=== PATIENT | female | born 1950 | race Caucasian/White ===

== ENCOUNTER 2017-08-14 07:55 | Emergency (ER) | payer MEDICARE ==
[~2017-08-14] VITALS: Ht 154.9 cm; Wt 76.0 kg
[2017-08-14 08:06] VITALS: PULSE 90; RESP 20; TEMP 98
[2017-08-14] MEDS ORDERED: LEVO88TA30 PO (08:28)
[2017-08-14] MEDS ORDERED: CITA40TA4 PO (08:28)
[2017-08-14] MEDS ORDERED: oxyCODONE/ACETAMINOPHEN 5 MG/325 MG TAB PO ONE (08:30)
--- NOTE | 2017-08-14 08:40 | PD ---
HPI Chief Complaint: Pain: Acute or Chronic Time Seen by Provider: 08:13 Travel History International Travel<30 days: No Contact w/Intl Traveler<30days: No Traveled to known affect area: No History of Present Illness HPI This 67-year-old female is complaining of pain at the base of her neck. She says the pain started on Vasyl and seems to be getting worse each day. She says she has not slept well since the pain started. She has taken ibuprofen without much response. The pain radiates to her right shoulder. It does not go down her arm. It is aggravated by movement of the neck. He tried to move her neck around to get some relief without wheeze upon. She has tried heat which did not help. She has no history of arthritis. She had thyroid cancer 20 years ago. She is on levothyroxine now. He does not smoke or drink alcohol. She says the pain is severe. She has not had fever or chills PFSH Past Medical History Glaucoma: Yes Thyroid Disease: Yes Social History Alcohol Use: No Tobacco Use: No Allergies-Medications (Allergen,Severity, Reaction): Coded Allergies: No Known Allergies (Unverified , 08/14/17) Reported Meds & Prescriptions Reported Meds & Active Scripts Active Reported Citalopram (Citalopram Hydrobromide) 40 Mg Tab 40 Mg PO DAILY Levoxyl (Levothyroxine Sodium) 88 Mcg Tab 88 Mcg PO DAILY Review of Systems General / Constitutional: No: Fever, Chills Eyes: No: Diploplia HENT: No: Headaches Cardiovascular: No: Chest Pain or Discomfort Respiratory: No: Cough, Shortness of Breath Musculoskeletal: No: Myalgias Skin: No Rash Neurologic: No: Weakness, Dizziness Endocrine: No: Heat Intolerance Hematologic/Lymphatic: No: Easy Bruising Physical Exam Narrative GENERAL: Well-developed female SKIN: Focused skin assessment warm/dry. HEAD: Atraumatic. Normocephalic. EYES: Pupils equal and round. No scleral icterus. No injection or drainage. ENT: No nasal bleeding or discharge. Mucous membranes pink and moist. NECK: Trachea midline. No JVD. There is really no midline tenderness of the neck. There is tenderness in the right lower paraspinal muscles GASTROINTESTINAL: Abdomen soft, non-tender, nondistended. Hepatic and splenic margins not palpable. MUSCULOSKELETAL: No obvious deformities. No clubbing. No cyanosis. No edema. NEUROLOGICAL: Awake and alert. No obvious cranial nerve deficits. Motor grossly within normal limits. Normal speech. There is no drift of the arms. Fisher Crab are equal. There is no sensory deficit PSYCHIATRIC: Appropriate mood and affect; insight and judgment normal. Data Data Last Documented VS Vital Signs Date Time Temp Pulse Resp B/P (MAP) Pulse Ox O2 Delivery O2 Flow Rate FiO2 08/14/17 08:06 98.0 90 20 Orders Orders Oxycodone-Acetamin 5-325 Mg (Percocet (08/14/17 08:30) Ct Cerv Spine W/O Contrast (08/14/17 08:26) [facility] Medical Decision Making Medical Screen Exam Complete: Yes Emergency Medical Condition: Yes Medical Record Reviewed: Yes Differential Diagnosis Differential includes radiculopathy, musculoskeletal pain, spinal space occupying lesion Narrative Course CT of the cervical spine was obtained. There is no fracture or subluxation. There are multilevel disc protrusions without canal stenosis. There are prominent degenerative changes greatest at C5-C6. Diagnosis Primary Impression: Cervical radiculopathy Scripts Cyclobenzaprine (Flexeril) 10 Mg Tab 10 MG PO TID for Muscle Spasm, #20 TAB 0 Refills Prov: Renny Bales MD 08/14/17 Oxycodone-Acetaminophen (Percocet) 7.5-325 mg Tab 1 TAB PO Q4H Y for PAIN, #20 TAB 0 Refills Prov: Renny Bales MD 08/14/17 Disposition: 01 DISCHARGE HOME Condition: Stable Renny Bales MD Aug 14, 2017 08:40
--- NOTE | 2017-08-14 09:17 | RADRPT ---
EXAM DATE/TIME: 08/14/2017 08:38 [place] COMPARISON: No previous studies available for comparison. INDICATIONS : Right sided neck pain. no known injury. RADIATION DOSE: 24.45 CTDIvol (mGy) MEDICAL HISTORY : Carcinoma, thyroid. SURGICAL HISTORY : Cholecystectomy. section. ENCOUNTER: Initial ACUITY: 3 days PAIN SCALE: 10/10 LOCATION: Right neck TECHNIQUE: Volumetric scanning of the cervical spine was performed. Multiplanar reconstructions in the sagittal, coronal and oblique axial planes were performed. Using automated exposure control and adjustment o f the mA and/or kV according to patient size, radiation dose was kept as low as reasonably achievable to obtain optimal diagnostic quality images. DICOM format image data is available electronically f or review and comparison. FINDINGS: VERTEBRAE: Normal vertebral body height. Prominent degenerative changes greatest at C5-6. ALIGNMENT: No evidence of subluxation. C2-C3: The bony spinal canal is normal in size. No evidence of disc bulge or herniation. The neural forami na are bilaterally patent. C3-C4: Small central protrusion abuts the ventral thecal sac without canal stenosis. The neural foramina ar e bilaterally patent. C4-C5: Small left para central protrusion abuts the ventral thecal sac without canal stenosis. The neural f oramina are bilaterally patent. C5-C6: Mild broad-based protrusion abuts the ventral thecal sac without canal stenosis. Mild neural foramina l narrowing bilaterally. C6-C7: Mild broad-based protrusion abuts the ventral thecal sac without canal stenosis. The neural foramina are bilaterally patent. C7-T1: The bony spinal canal is normal in size. No evidence of disc bulge or herniation. The neural forami na are bilaterally patent. CONCLUSION: 1. No fracture or subluxation. 2. Multilevel protrusions without canal stenosis. Danial Browne MD on August 14, 2017 at 9:11 Board Certified Radiologist. This report was verified electronically.
[2017-08-14] MEDS ORDERED: CYCL10TA PO (09:29)
[2017-08-14] MEDS ORDERED: PERC7.5T13 PO (09:29)
[2017-08-14 09:39] VITALS: RESP 16
== END 2017-08-14 09:45 | disposition home or self-care (01) ==
LOC: PHED 07:55
DX: M54.12 Radiculopathy, cervical region (principal); Z79.899 Other long term (current) drug therapy
CPT/HCPCS: 72125

== ENCOUNTER 2017-11-03 11:32 | Inpatient (IN) | payer OTHER, MEDICARE ==
[~2017-11-03] VITALS: Ht 154.9 cm; Wt 73.5 kg
[2017-11-03] VITALS (12 sets, daily range): BP systolic 135–193; BP diastolic 61–95; PULSE 55–87; RESP 16–20; TEMP 98–99.3; O2SAT 97–99
[~2017-11-03 11:32] MED LIST: CITA40TA4 PO; CYCL10TA PO; LEVO88TA30 PO; PERC7.5T13 PO
[2017-11-03] MEDS ORDERED: PANTOPRAZOLE SODIUM 40 MG VIAL IV PUSH ONE (13:15)
--- NOTE | 2017-11-03 13:35 | PD ---
HPI Chief Complaint: Abnormal Results Time Seen by Provider: 12:59 Travel History International Travel<30 days: No Contact w/Intl Traveler<30days: No Traveled to known affect area: No History of Present Illness HPI This is a 67-year-old female who presents to the emergency department sent in by her primary care physician for low hemoglobin. Patient reports that she had routine blood work done at her primary care doctor demonstrating a hemoglobin of 5.9. She does acknowledge that for the past several months she's felt generally weak, constant, mild, associated with some difficulty exerting herself. She says for 10 years she's been having bright red blood in her stools but it's never been very much so she's never had it checked out. She has no family history of colon cancer. PFSH Past Medical History Anemia: Yes Anxiety: Yes Depression: Yes Cancer: Yes (THYROID) Glaucoma: Yes Immunizations Current: Yes Radiation Therapy: Yes (THYROID) Thyroid Disease: Yes Tetanus Vaccination: > 5 Years Influenza Vaccination: No ?: Not Menopausal: Yes Past Surgical History Section: Yes (X 3) Cholecystectomy: Yes Endocrine Surgery: Yes (CANCEROUS THYROID NODULE REMOVED) Other Surgery: Yes (TUMMY TUCK) Social History Alcohol Use: No Tobacco Use: No (quit 20+ yrs ago cigs 1 pack every 3 days) Substance Use: No (history THC) Allergies-Medications (Allergen,Severity, Reaction): Coded Allergies: No Known Allergies (Unverified , 11/03/17) Reported Meds & Prescriptions Reported Meds & Active Scripts Active Reported Citalopram (Citalopram Hydrobromide) 40 Mg Tab 40 Mg PO DAILY Levoxyl (Levothyroxine Sodium) 88 Mcg Tab 88 Mcg PO DAILY Review of Systems Except as stated in HPI: all other systems reviewed are Neg Physical Exam Narrative GENERAL:Well appearing, no acute distress SKIN: Focused skin assessment warm and dry. HEAD: Atraumatic. Normocephalic. EYES: Pale conjunctivae. ENT: Moist mucous membranes NECK: Trachea midline. CARDIOVASCULAR: Regular rate and rhythm. No murmur appreciated. RESPIRATORY: Clear to auscultation. Breath sounds equal bilaterally. GASTROINTESTINAL: Abdomen soft, non-tender, nondistended. MUSCULOSKELETAL: No obvious deformities. NEUROLOGICAL: Awake and alert. No obvious cranial nerve deficits. Moving all extremities. PSYCHIATRIC: Appropriate mood and affect; insight and judgment normal. Data Data Last Documented VS Vital Signs Date Time Temp Pulse Resp B/P (MAP) Pulse Ox O2 Delivery O2 Flow Rate FiO2 11/03/17 14:00 87 16 137/64 (88) 98 Room Air 11/03/17 12:12 98.7 Orders Orders Complete Blood Count With Diff (11/03/17 12:59) Comprehensive Metabolic Panel (11/03/17 12:59) Prothrombin Time / Inr (Pt) (11/03/17 12:59) Act Partial Throm Time (Ptt) (11/03/17 12:59) Type And Screen (11/03/17 12:59) Pantoprazole Inj (Protonix Inj) (11/03/17 13:15) Iron/Tibc Profile (11/03/17 14:26) Ferritin (11/03/17 14:26) Red Blood Cells (Rbc) (11/03/17 14:42) Blood Product Administration (11/03/17 14:42) Sodium Chlor 0.9% 250 Ml Inj (Ns 250 Ml (11/03/17 14:45) Admit Order (Ed Use Only) (11/03/17 14:48) Admit To Inpatient (11/03/17 ) Vital Signs (Adult) WILLIE.Q4H (11/03/17 14:48) Activity Oob With Assistance (11/03/17 14:48) Inpatient Certification (11/03/17 ) Consult Gastroenterology (11/03/17 ) Labs Laboratory Tests Test 11/03/17 13:35 11/03/17 14:40 White Blood Count 5.7 TH/MM3 Red Blood Count 3.80 MIL/MM3 Hemoglobin 6.4 GM/DL Hematocrit 23.0 % Mean Corpuscular Volume 60.4 FL Mean Corpuscular Hemoglobin 16.8 PG Mean Corpuscular Hemoglobin Concent 27.9 % Red Cell Distribution Width 21.8 % Platelet Count 305 TH/MM3 Mean Platelet Volume 7.9 FL Neutrophils (%) (Auto) 62.4 % Lymphocytes (%) (Auto) 22.7 % Monocytes (%) (Auto) 9.7 % Eosinophils (%) (Auto) 1.7 % Basophils (%) (Auto) 3.5 % Neutrophils # (Auto) 3.5 TH/MM3 Lymphocytes # (Auto) 1.3 TH/MM3 Monocytes # (Auto) 0.6 TH/MM3 Eosinophils # (Auto) 0.1 TH/MM3 Basophils # (Auto) 0.2 TH/MM3 CBC Comment AUTO DIFF Differential Comment AUTO DIFF CONFIRMED Ovalocytes 2+ Keratocytes OCC Blood Urea Nitrogen 7 MG/DL Creatinine 0.57 MG/DL Random Glucose 79 MG/DL Total Protein 7.1 GM/DL Albumin 3.6 GM/DL Calcium Level 8.3 MG/DL Alkaline Phosphatase 126 U/L Aspartate Amino Transf (AST/SGOT) 26 U/L Alanine Aminotransferase (ALT/SGPT) 11 U/L Total Bilirubin 0.5 MG/DL Sodium Level 140 MEQ/L Potassium Level 4.2 MEQ/L Chloride Level 109 MEQ/L Carbon Dioxide Level 24.2 MEQ/L Anion Gap 7 MEQ/L Estimat Glomerular Filtration Rate 106 ML/MIN MDM Medical Decision Making Medical Screen Exam Complete: Yes Emergency Medical Condition: Yes Interpretation(s) Afebrile, no tachycardia, hypertensive Microcytic anemia hemoglobin is 6.4 Electrolytes are reassuring Differential Diagnosis Lower GI bleed, upper GI bleed, anemia of chronic disease, hematologic malignancy Narrative Course This is a 67-year-old female who presents to the emergency department with low hemoglobin found by her primary care physician. She says she's been having bright red blood per rectum for years. She has external hemorrhoids on exam but no stool in the blood to evaluate by Hemoccult. She was placed on a monitor and an IV was established. Hemoglobin here is 6.4. Patient will be admitted for blood transfusion and GI consultation. Physician Communication Physician Communication Discussed with Dr. Jon Diagnosis Primary Impression: Symptomatic anemia Admitting Information Admitting Physician Requests: Admit Latoya Rubin MD Nov 03, 2017 13:35
[2017-11-03 13:53] LABS: AUTOMATED NEUTROPHIL # 3.5 TH/MM3 (1.8-7.7); BASOPHIL # 0.2 TH/MM3 (0-0.2); BASOPHIL % 3.5 % (0.0-2.0); EOSINOPHIL # 0.1 TH/MM3 (0-0.4); EOSINOPHIL % 1.7 % (0.0-4.0); LYMPH % 22.7 % (9.0-44.0); LYMPHOCYTE # 1.3 TH/MM3 (1.0-4.8); MEAN CELL VOLUME 60.4 FL (80.0-100.0); MEAN CORPUSCULAR HEMOGLOBIN 16.8 PG (27.0-34.0); MEAN PLATELET VOLUME 7.9 FL (7.0-11.0); MONO % 9.7 % (0.0-8.0); MONOCYTE # 0.6 TH/MM3 (0-0.9); NEUT % 62.4 % (16.0-70.0); PLATELET COUNT 305 TH/MM3 (150-450); RED CELL DISTRIBUTION WIDTH 21.8 % (11.6-17.2); WHITE BLOOD COUNT 5.7 TH/MM3 (4.0-11.0)
[2017-11-03 14:03] LABS: MEAN CORPUSCULAR HGB CONC 27.9 % (32.0-36.0)
[2017-11-03 14:05] LABS: HEMOGLOBIN 6.4 GM/DL (11.6-15.3)
[2017-11-03 14:06] LABS: CHLORIDE 109 MEQ/L (98-107); SODIUM (NA) 140 MEQ/L (136-145)
[2017-11-03 14:09] LABS: ALBUMIN 3.6 GM/DL (3.4-5.0); BICARBONATE 24.2 MEQ/L (21.0-32.0); CALCIUM 8.3 MG/DL (8.5-10.1); GLUCOSE,RANDOM 79 MG/DL (74-106)
[2017-11-03 14:10] LABS: BLOOD UREA NITROGEN 7 MG/DL (7-18)
[2017-11-03 14:12] LABS: ALT (GPT) 11 U/L (10-53); AST (GOT) 26 U/L (15-37)
[2017-11-03 14:13] LABS: CREATININE 0.57 MG/DL (0.50-1.00); GLOMERULAR FILTRATION RATE 106 ML/MIN (>89)
[2017-11-03 14:14] LABS: TOTAL BILIRUBIN ADULT 0.5 MG/DL (0.2-1.0); TOTAL PROTEIN 7.1 GM/DL (6.4-8.2)
[2017-11-03 14:15] LABS: ALKALINE PHOSPHATASE 126 U/L (45-117)
[2017-11-03 14:38] LABS: KERATOCYTES OCC (NORMAL); OVALOCYTES 2+ (NORMAL)
[2017-11-03] MEDS ORDERED: SODIUM CHLOR 0.9% 250 ML INJ 250 ML IV ONE (14:45)
[2017-11-03 15:15] LABS: PROTHROMBIN TIME - PATIENT 10.1 SEC (9.8-11.6)
--- NOTE | 2017-11-03 15:58 | HHI.HP ---
[facility]ician No Primary Care Physician Admission Diagnosis symptomatic anemia Diagnoses: Chief Complaint: Low blood count Travel History International Travel<30 Days: No Contact w/Intl Traveler <30 Da: No Traveled to Known Affected Are: No History of Present Illness 67-year-old white female being admitted for suspected GI bleed with anemia. Patient was in her usual state of health until she got a phone call from her primary care physician's office directing her to come to the ED due to a low blood count around 5.8. Patient states that she does note blood on wiping her stool but says she has a known history of hemorrhoids. Denies any bright red blood per rectum otherwise. Denies any dark tarry stools. Denies taking any NSAIDs. Says that for about a year or so she did not have insurance and when she hits 67 she finally got insurance and thus had her routine blood work performed. Has a known history of hypothyroidism. In the emergency room her hemoglobin was noted to be 6.4 and microcytic anemia. Review of Systems Except as stated in HPI: all other systems reviewed are Neg Past Family Social History Past Medical History Hypothyroidism Past Surgical History No abdominal surgeries Allergies: Coded Allergies: No Known Allergies (Unverified , 11/03/17) Family History Family history of colorectal cancer with her sibling when she was diagnosed in her 60s Social History Used to smoke up until 20 years ago, denies drinking alcohol, does admit to smoking pot Physical Exam Vital Signs Vital Signs Date Time Temp Pulse Resp B/P (MAP) Pulse Ox O2 Delivery O2 Flow Rate FiO2 11/03/17 15:05 69 16 98 Room Air 11/03/17 15:04 70 16 138/76 (96) 98 Room Air 11/03/17 14:00 87 16 137/64 (88) 98 Room Air 11/03/17 13:23 70 16 99 Room Air 11/03/17 13:00 69 16 149/79 (102) 98 Room Air 11/03/17 12:12 98.7 71 18 146/85 (105) 99 Physical Exam VS: afebrile GENERAL: Middle-aged white female, lying in bed, no acute distress SKIN: Pale but otherwise warm and dry EYES: No scleral icterus. No injection or drainage. ENT: No nasal bleeding or discharge. Mucous membranes pink and moist. CARDIOVASCULAR: Regular rate and irrregular rhythm. no murmurs RESPIRATORY: No accessory muscle use. Clear to auscultation. Breath sounds equal bilaterally. GASTROINTESTINAL: Abdomen soft, non-tender, nondistended. Extremities: No clubbing, cyanosis, or edema. No obvious deformities. MUSCULOSKELETAL: grossly intact ROM with 5/5 strength in upper and lower extremities proximally; adequate muscle bulk and tone for age and habitus NEUROLOGICAL: Awake and alert. No obvious cranial nerve deficits. No facial droop nor slurred speech noted. PSYCHIATRIC: Appropriate mood and affect; insight and judgment normal. Laboratory Laboratory Tests Test 11/03/17 13:35 11/03/17 14:40 White Blood Count 5.7 Red Blood Count 3.80 Hemoglobin 6.4 Hematocrit 23.0 Mean Corpuscular Volume 60.4 Mean Corpuscular Hemoglobin 16.8 Mean Corpuscular Hemoglobin Concent 27.9 Red Cell Distribution Width 21.8 Platelet Count 305 Mean Platelet Volume 7.9 Neutrophils (%) (Auto) 62.4 Lymphocytes (%) (Auto) 22.7 Monocytes (%) (Auto) 9.7 Eosinophils (%) (Auto) 1.7 Basophils (%) (Auto) 3.5 Neutrophils # (Auto) 3.5 Lymphocytes # (Auto) 1.3 Monocytes # (Auto) 0.6 Eosinophils # (Auto) 0.1 Basophils # (Auto) 0.2 CBC Comment AUTO DIFF Differential Comment AUTO DIFF CONFIRMED Ovalocytes 2+ Keratocytes OCC Blood Urea Nitrogen 7 Creatinine 0.57 Random Glucose 79 Total Protein 7.1 Albumin 3.6 Calcium Level 8.3 Alkaline Phosphatase 126 Aspartate Amino Transf (AST/SGOT) 26 Alanine Aminotransferase (ALT/SGPT) 11 Total Bilirubin 0.5 Sodium Level 140 Potassium Level 4.2 Chloride Level 109 Carbon Dioxide Level 24.2 Anion Gap 7 Estimat Glomerular Filtration Rate 106 Prothrombin Time 10.1 Prothromb Time International Ratio 1.0 Activated Partial Thromboplast Time 22.5 Result Diagram: 11/03/17 1335 11/03/17 1335 Caprini VTE Risk Assessment Caprini VTE Risk Assessment: Mod/High Risk (score >= 2) Caprini Risk Assessment Model Point Value = 1 Point Value = 2 Point Value = 3 Point Value = 5 Age 41-60 Minor surgery BMI > 25 kg/m2 Swollen legs Varicose veins or History of unexplained or recurrent spontaneous Oral contraceptives or hormone replacement Sepsis (< 1 month) Serious lung disease, including pneumonia (< 1 month) Abnormal pulmonary function Acute myocardial infarction Congestive heart failure (< 1 month) History of inflammatory bowel disease Medical patient at bed rest Age 61-74 Arthroscopic surgery Major open surgery (> 45 min) Laparoscopic surgery (> 45 min) Malignancy Confined to bed (> 72 hours) Immobilizing plaster cast Central venous access Age >= 75 History of VTE Family history of VTE Factor V Leiden Prothrombin [id number] Lupus anticoagulant Anticardiolipin antibodies Elevated serum homocysteine Heparin-induced thrombocytopenia Other congenital or acquired thrombophilia Stroke (< 1 month) Elective arthroplasty Hip, pelvis, or leg fracture Acute spinal cord injury (< 1 month) Prophylaxis Regimen Total Risk Factor Score Risk Level Prophylaxis Regimen 0-1 Low Early ambulation 2 Moderate Order ONE of the following: *Sequential Compression Device (SCD) *Heparin 5000 units SQ BID 3-4 Higher Order ONE of the following medications: *Heparin 5000 units SQ TID *Enoxaparin/Lovenox 40 mg SQ daily (WT < 150 kg, CrCl > 30 mL/min) *Enoxaparin/Lovenox 30 mg SQ daily (WT < 150 kg, CrCl > 10-29 mL/min) *Enoxaparin/Lovenox 30 mg SQ BID (WT < 150 kg, CrCl > 30 mL/min) AND/OR *Sequential Compression Device (SCD) 5 or more Highest Order ONE of the following medications: *Heparin 5000 units SQ TID (Preferred with Epidurals) *Enoxaparin/Lovenox 40 mg SQ daily (WT < 150 kg, CrCl > 30 mL/min) *Enoxaparin/Lovenox 30 mg SQ daily (WT < 150 kg, CrCl > 10-29 mL/min) *Enoxaparin/Lovenox 30 mg SQ BID (WT < 150 kg, CrCl > 30 mL/min) AND *Sequential Compression Device (SCD) Assessment and Plan Assessment and Plan 67-year-old white female being admitted for possible acute on chronic anemia possibly secondary to GI bleed. Asymptomatic apart from noting blood on wiping from known history of hemorrhoids. Has never had a colonoscopy before. irregular HR, checking ekg Anemia - Being transfused 2 units from emergency room, obtaining ferritin and iron levels. - Obtaining Hemoccult test, consulting GI, starting clear liquid diet. Hypothyroidism - continue home dose of Synthroid SCDs Physician Certification 2 Midnight Certification Type: Admission for Inpatient Services Order for Inpatient Services The services are ordered in accordance with Medicare regulations or non- Medicare payer requirements, as applicable. In the case of services not specified as inpatient-only, they are appropriately provided as inpatient services in accordance with the 2-midnight benchmark. Estimated LOS (days): 3 3 days is the estimated time the patient will need to remain in the hospital, assuming treatment plan goals are met and no additional complications. Post-Hospital Plan: Home Kvng Jon MD Nov 03, 2017 15:58
[2017-11-03] MEDS: CITALOPRAM HYDROBROMIDE 40 MG TAB PO SCH (16:15)
[2017-11-03] MEDS: LEVOTHYROXINE SODIUM 88 MCG TAB PO SCH (16:15)
[2017-11-03 16:42] LABS: % SATURATION IRON PROFILE 2.2 % (20-50); IRON (FE) 11 MCG/DL (50-170); TOTAL IRON BINDING CAPACITY 496 MCG/DL (250-450)
[2017-11-03 16:45] LABS: FERRITIN 1 NG/ML (8-252)
--- NOTE | 2017-11-03 20:07 | MB ---
cc: RASHI BOO M.D., MARGARET M.D. MASOODI, HAMMAD DATE OF CONSULTATION: 11/03/2017. REASON FOR CONSULTATION: Anemia and rectal bleeding. PATIENT OF: Dr. Salmeron. HISTORY OF PRESENT ILLNESS: Ms. Martinez is a 67-year-old who presents with a hemoglobin of 6.4. She states off and on for about ten years she has been having some bright red blood per rectum which was attributed to hemorrhoids. She states this was fairly minimal. Lately she has been feeling more tired and weak. She states she does not have insurance and over the last few years she did not see a doctor. Finally she got insurance so she went to see a doctor and some blood work was done. Hemoglobin of 6.4 was found and the patient was sent to the emergency room. The patient is having no abdominal pain. No hematemesis. No hematochezia. No rashes. No icterus. PAST MEDICAL HISTORY: 1. Anemia. 2. Anxiety disorder. 3. Depression. 4. Hypothyroidism. PAST SURGICAL HISTORY: 1. Cholecystectomy. 2. section. 3. No previous GI workup. ALLERGIES: 1. CODEINE. MEDICATIONS: 1. Levoxyl. 2. Citalopram. REVIEW OF SYSTEMS: No nausea or vomiting. No abdominal pain. No active GI bleeding. PHYSICAL EXAMINATION: GENERAL: The physical exam reveals a well-nourished lady in no apparent distress. VITAL SIGNS: Stable. HEAD AND NECK: Anicteric sclerae. CHEST: Bilateral air entry with rales. ABDOMEN: Abdomen is soft and nontender. No hepatosplenomegaly. Bowel sounds are present. WANT AD RECEIVER: Nonfocal. RECTAL: Deferred at this time. LABORATORY STUDIES: Labs reveal hemoglobin 6.4, MCV 60%, creatinine 0.57. INR is 1. IMPRESSION: Iron deficiency anemia. RECOMMENDATIONS: There is no evidence of active GI bleeding. Options discussed with the patient. At this time, she will of course be transfused to A hemoglobin of above 8. Diet as tolerated. If she is stable after blood transfusion, she can be discharged home tomorrow with outpatient GI follow up next week for outpatient EGD and colonoscopy. This has been discussed with the patient and her daughter and they are agreeable to this plan. Thank you for this referral. MD KRIS Coles /3:59 PM /7:49 PM
[2017-11-04] VITALS: BP 135/75; PULSE 67; RESP 20; TEMP 98.3; O2SAT 97
[2017-11-04 08:00] VITALS: BP 154/74; PULSE 82; RESP 18; TEMP 97.7; O2SAT 97
[2017-11-04 08:09] LABS: BASOPHIL % 0.8 % (0.0-2.0); EOSINOPHIL # 0.1 TH/MM3 (0-0.4); EOSINOPHIL % 2.1 % (0.0-4.0); HEMATOCRIT 30.4 % (35.0-46.0); HEMOGLOBIN 8.7 GM/DL (11.6-15.3); LYMPHOCYTE # 0.9 TH/MM3 (1.0-4.8); MEAN CELL VOLUME 67.2 FL (80.0-100.0); MEAN CORPUSCULAR HEMOGLOBIN 19.4 PG (27.0-34.0); MEAN PLATELET VOLUME 8.1 FL (7.0-11.0); MONO % 8.8 % (0.0-8.0); MONOCYTE # 0.5 TH/MM3 (0-0.9); NEUT % 71.3 % (16.0-70.0); PLATELET COUNT 306 TH/MM3 (150-450); RED BLOOD COUNT 4.51 MIL/MM3 (4.00-5.30); RED CELL DISTRIBUTION WIDTH 27.9 % (11.6-17.2); WHITE BLOOD COUNT 5.5 TH/MM3 (4.0-11.0)
[2017-11-04] MEDS: CITALOPRAM HYDROBROMIDE 40 MG TAB PO SCH (08:19)
[2017-11-04 08:28] LABS: MEAN CORPUSCULAR HGB CONC 28.8 % (32.0-36.0)
[2017-11-04 09:13] LABS: KERATOCYTES OCC (NORMAL); OVALOCYTES 1+ (NORMAL); ROULEAUX PRESENT (NORMAL); SPHEROCYTES OCC (NORMAL)
[2017-11-04] MEDS ORDERED: ASCORBIC ACID 500 MG TAB PO SCH (10:00)
--- NOTE | 2017-11-04 10:44 | HHI.DCPOC ---
Discharge Care Plan Diagnosis: (1) Symptomatic anemia Goals to Promote Your Health * To prevent worsening of your condition and complications * To maintain your health at the optimal level Directions to Meet Your Goals Take your medications as prescribed Follow your dietary instruction Follow activity as directed Keep your appointments as scheduled Take your immunizations and boosters as scheduled If your symptoms worsen call your PCP, if no PCP go to Urgent Care Center or Emergency Room Smoking is Dangerous to Your Health. Avoid second hand smoke Call the 24-hour hour crisis hotline for domestic abuse at Ingris Jennings Nov 04, 2017 10:44
--- NOTE | 2017-11-04 10:44 | HHI.PR ---
Subjective Remarks Follow-up symptomatic anemia. Patient seen and examined, lying awake in bed comfortably, in no apparent distress. States she feels much better post blood transfusion. Eating and drinking well. Hemoglobin up to 8.7 today. Daughter at bedside and spoke extensively about disease process, encouraged follow-up GI one week from discharge. Recommendations are to undergo EDG and colonoscopy. Objective Vitals Vital Signs Date Time Temp Pulse Resp B/P (MAP) Pulse Ox O2 Delivery O2 Flow Rate FiO2 11/04/17 08:00 97.7 82 18 154/74 (100) 97 11/04/17 00:00 98.3 67 20 135/75 (95) 97 11/03/17 23:58 98.3 67 20 135/75 97 11/03/17 21:44 99.3 84 18 142/61 (88) 99 11/03/17 21:38 98.4 67 18 141/86 99 11/03/17 21:36 98.4 67 18 141/86 99 11/03/17 18:48 98.0 66 18 148/70 99 11/03/17 18:39 98.6 55 18 142/95 99 11/03/17 16:24 75 16 137/74 (95) 98 11/03/17 16:00 98.4 55 16 193/89 (123) 97 11/03/17 15:05 69 16 98 Room Air 11/03/17 15:04 70 16 138/76 (96) 98 Room Air 11/03/17 14:00 87 16 137/64 (88) 98 Room Air 11/03/17 13:23 70 16 99 Room Air 11/03/17 13:00 69 16 149/79 (102) 98 Room Air 11/03/17 12:12 98.7 71 18 146/85 (105) 99 I/O 11/03/17 11/03/17 11/03/17 11/04/17 11/04/17 11/04/17 06:59 14:59 22:59 06:59 14:59 22:59 Intake Total 800 ml 1100 ml Balance 800 ml 1100 ml Intake Oral 400 ml Packed Cells 400 ml 1100 ml # Voids 2 # Bowel Movements 0 Result Diagram: 11/04/17 0719 11/03/17 2718 Objective Remarks GENERAL: Well-nourished, well-developed patient in NAD. SKIN: Warm and dry. No rash. HEAD: Normocephalic. Atraumatic. EYES: Pupils equal and round. No scleral icterus. No injection or drainage. ENT: No nasal bleeding or discharge. Mucous membranes pink and moist. NECK: Supple. Trachea midline. CARDIOVASCULAR: Regular rate and rhythm. S1, S2 noted. No murmur appreciated. RESPIRATORY: No accessory muscle use. Clear to auscultation. Breath sounds equal bilaterally. GASTROINTESTINAL: Abdomen soft, non-tender, nondistended. Normoactive bowel sounds x4. MUSCULOSKELETAL: No obvious deformities. Extremities without clubbing, cyanosis , or edema. NEUROLOGICAL: Awake and alert. No obvious cranial nerve deficits. Motor grossly within normal limits. 5/5 muscle strength in bilateral upper and lower extremities. Normal speech. PSYCHIATRIC: Appropriate mood and affect; insight and judgment normal. A/P Assessment and Plan 67-year-old white female being admitted for possible acute on chronic anemia possibly secondary to GI bleed. Asymptomatic apart from noting blood on wiping from known history of hemorrhoids. Symptomatic Anemia likely secondary to iron deficiency anemia -Status post two units. PCP in ED. Hemoglobin stable at 8.7. - Ferritin and iron levels low. Placed on iron supplementation with vitamin C. - Tolerating by mouth intake, denies any abdominal pain, nausea or vomiting. - Okay to discharge per GI standpoint today. Hypothyroidism - continue home dose of Synthroid SCDs Discharge Planning Discharge home today. Ingris Jennings Nov 04, 2017 10:44
[2017-11-04] MEDS ORDERED: FERR325T20 PO (10:48)
[2017-11-04] MEDS ORDERED: ASCO500 PO (10:48)
[2017-11-04] MEDS ORDERED: PANT20 PO (10:49)
[2017-11-04] MEDS: LEVOTHYROXINE SODIUM 88 MCG TAB PO SCH (11:08)
--- NOTE | 2017-11-04 14:36 | EKG ---
Date Performed: 11/03/2017 Time Performed: 18:15:35 PTAGE: 67 years EKG: Supraventricular rhythm Slight undetermined frequent ventricular ectopy NO PREVIOUS TRACING DOCTOR: Rahat Miller Interpretating Date/Time 11/04/2017 14:34:29
[2017-11-05] MEDS ORDERED: FERROUS SULFATE 325 MG (65 MG ELEMENTAL IRON) TAB PO SCH (09:00)
== END 2017-11-04 11:51 | disposition home or self-care (01) | DRG 812 ==
LOC: PHED 11:32 → PHEDA 14:49 → PH3B 16:27
PROVIDERS: ADMIT Hospitalist; ATTEND Hospitalist
PROC: 30233N1 Transfusion of Nonautologous Red Blood Cells into Peripheral Vein, Percutaneous Approach (ICD-10-PCS; principal; 2017-11-03)
DX: D50.9 Iron deficiency anemia, unspecified (principal); F32.9 Major depressive disorder, single episode, unspecified; K64.4 Residual hemorrhoidal skin tags; E03.9 Hypothyroidism, unspecified; H40.9 Unspecified glaucoma; F12.90 Cannabis use, unspecified, uncomplicated; F41.9 Anxiety disorder, unspecified; Z80.0 Family history of malignant neoplasm of digestive organs; Z85.850 Personal history of malignant neoplasm of thyroid; Z87.891 Personal history of nicotine dependence
CPT/HCPCS: 36430; 80053; 82272; 82728; 83540; 83550; 85025; 85610; 85730; 86850; 86900; 86901; 86920; 93005; 96374; C9113; J7050; P9016

== ENCOUNTER 2018-09-11 16:09 | Inpatient (IN) ==
--- NOTE | 2018-09-11 16:49 | XR ---
EXAM DATE: 09/11/2018 4:41 PM EST AGE/SEX: 68 years / Female INDICATIONS: Post intubation. Post code. Post CPR. CLINICAL DATA: This is the patient's initial encounter. Patient reports that signs and symptoms have been present for 1 day and indicates a pain score of Nonresponsive. MEDICAL/SURGICAL HISTORY: Non-responsive. . COMPARISON: No prior exams available for comparison. FINDINGS: The ET tube appears to be a low position. The soledad is difficult to actually identify. There is dis tention of the stomach. ET tube could potentially be in the esophagus. The heart size is enlarged. Th ere is increased density at the medial right chest. Some this could be secondary to atelectasis. The re is decreased aeration in the right lung compared to the left lung. CONCLUSION: ET tube in a low position in the mid chest. There is very prominent gaseous distention raising the po ssibly it may be in the mid esophagus. It is in the trachea, it is at the soledad. Cardiomegaly. Electronically signed by: Larry Hansen MD 09/11/2018 4:48 PM EST
[2018-09-11] MEDS ORDERED: Vancomycin Inj 1,000 MG in Sodium Chlor 0.9% Inj 250 ML IV.SIG ONE (17:12)
[2018-09-11] MEDS ORDERED: Piperacil/Tazo 3.375 GM Premix 50 ML IV.SIG ONE (17:12)
[2018-09-11] MEDS ORDERED: Norepinephrine Inj 4 MG/4 ML Ampul ONE (17:20)
--- NOTE | 2018-09-11 17:20 | P.EN ---
I was about to see a trauma patient in the ER. I was called by the ER physician to assist with a chest decompression as there was suspicion of a right sided pneumothorax on this patient in severe distress.I proceeded with a right chest tube thoracostomy.As patient did not have access also proceeded with a left femoral central line insertion.ACLS/CPR was continued by the ER team.
--- NOTE | 2018-09-11 17:32 | P.OP ---
Preoperative Diagnosis: Cardiac Arrest Postoperative Diagnosis: Cardiac Arrest Date of procedure: 09/11/18 Procedure: Right chest tube thoracostomy,left femoral central line insertion Surgeon: Yasmin Webb MD Operation and Findings: Right chest was sterilely prepped and draped.5th ICR incision was performed- blunt dissection to rib-pleural space was entered above rib,lung palpated and [address] was inserted and secured to skin with 1-0 silk.Attempt to access right femoral vein was not successful.Attention was returned to left femoral vein- left groin was sterilely prepped and draped and despite technical difficulties with ongoing CPR femoral vein was accessed and using modified seldinger technique TLC catheter was inserted and secured to skin with 3-0 nylon.There is good flush and blood return.
--- NOTE | 2018-09-11 17:48 | ED ---
Procedures Intubation Laryngoscope: Daniel ET Tube Size: 7 ET Tube Uncuffed: No Tube Secured Location: teeth Tube Placement Confirmation: visualized tube passing through cords, equal breath sounds bilaterally, no breath sounds over epigastrium and confirmation by capnometry Patient Tolerated Procedure: well, no complications and other Intubation Complications: difficult intubation Additional Comments: Patient was a difficult airway with a large tongue and anterior and bloody. Patient was intubated with Daniel blade and confirmed with glide scope by anesthesia
[2018-09-11 17:57] LABS: VBG Base Excess 26.7 mmol/L (-2-2); VBG Blood Gas Oxygen Content 1.3 Vol % (9.0-17.0)
[2018-09-11 17:58] LABS: VBG PCO2 116 mmHG (44-48); VBG PO2 18 mmHG (35-40)
[2018-09-11 18:07] LABS: Baso # (Auto) 0.1 th/mm3 (0.0-0.2); Baso % (Auto) 0.4 % (0.0-2.0); Eos # (Auto) 0.2 th/mm3 (0.0-0.4); Eos % (Auto) 1.2 % (0.0-4.0); Hematocrit 30.8 % (35.0-46.0); Lymph # (Auto) 4.8 th/mm3 (1.0-4.8); Lymph % (Auto) 23.1 % (9.0-44.0); Mean Corpuscular HGB Conc 32.4 % (32.0-36.0); Mean Corpuscular Hemoglobin 32.5 pg (27.0-34.0); Mean Corpuscular Volume 100.3 fL (80.0-100.0); Mean Platelet Volume 9.4 fL (7.0-11.0); Mono % (Auto) 4.7 % (0.0-8.0); Neut # (Auto) 14.6 th/mm3 (1.8-7.7); Neut % (Auto) 70.6 % (16.0-70.0); Platelet Count 241 th/mm3 (150-450); Red Blood Count 3.07 mil/mm3 (4.00-5.30); Red Cell Distribution Width 16.1 % (11.6-17.2); White Blood Count 20.7 th/mm3 (4.0-11.0)
[2018-09-11 18:18] LABS: Activated Partial Thrombo Time 37.1 sec (23.4-31.7); INR 1.2 Ratio; Prothrombin Time 11.7 sec (9.8-11.6)
--- NOTE | 2018-09-11 18:26 | ED ---
HPI General Stated Complaint: Medical/evac Time Seen by Provider: 09/11/18 17:35 Source: EMS Mode of arrival: EMS Limitations: altered mental status History of Present Illness HPI narrative: Patient is a 68 year old female who presents to the ER with EMS after she was found to be in Vfib arrest. 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 When Fire/rescue arrived on scene- she was found to be in vfib arrest. She was shocked once by fire/rescue - rhythm after that was sinus tack. When EMS arrived on scene, patient was unresponsive - they intubated patient with 2 attempts, EMS was unable to obtain a capnometer reading. Patient arrived to the ER intubated with a distended abdomen. NO breath sounds were obtainable by BMV. ETT was removed and patient was re-intubated in the ER. Related Data Allergies Allergy/AdvReac Type Severity Reaction Status Date / Time No Known Allergies Allergy Unverified 11/03/17 12:14 Review of Systems ROS Unobtainable ROS Unobtainable: unobtainable due to endotracheal tube and unobtainable due to mental status PMFSH History History Provided By: Family Member Medical History Medical History Anemia (Acute) Depression (Acute) Hemorrhoids (Acute) Hypertension (Acute) Hypothyroidism (Acute) Seizure (Acute) Surgical History Surgical History History of cholecystectomy (Acute) History of colonoscopy (Acute) History of esophagogastroduodenoscopy (EGD) (Acute) Family History Family History Father Myocardial infarct Mother Heart disease Obesity Hypertension Mother No problems noted. Social History Social History How Often Do You Have a Drink Containing Alcohol: Never Exam Narrative Exam Narrative: GENERAL: Severe distress SKIN: Focused skin assessment dry, patient pale appearing HEAD: Atraumatic. EYES: No injection or drainage. ENT: No nasal bleeding or discharge. Mucous membranes pink. NECK: Trachea midline. No JVD. CARDIOVASCULAR: Regular rate and rhythm. No murmur appreciated. RESPIRATORY: patient initially had no appreciable breath sounds on initial exam GASTROINTESTINAL: Abdomen is distended. Hepatic and splenic margins not palpable. MUSCULOSKELETAL: No obvious deformities. No clubbing. Patient cyanotic appearing, No edema. Course Initial Documented Vital Signs Respiratory Rate 20 09/11/18 18:00 Pulse Oximetry 100 09/11/18 18:00 Last Documented Vital Signs Temperature 102.6 F H 09/12/18 00:00 Pulse Rate 90 09/12/18 03:00 Respiratory Rate 24 09/12/18 03:00 Blood Pressure 153/73 H 09/12/18 01:16 Pulse Oximetry 100 09/12/18 03:00 Medical Decision Making MDM Narrative Medical decision making narrative: Patient presented to the emergency room after she had a witnessed V. fib arrest. Patient was shocked by fire rescue, her rhythm afterwards was sinus tachycardia. EMS reported that they attempted to intubate patient twice, reports that she was difficult to intubate. EMS were unable to obtain at capnometer reading. Patient did have a distended abdomen upon presentation to the emergency room, I was unable to hear any breath sounds. I removed this ETT as it was in her esophagus and placed an 8.0 ETT using direct visualization. I confirmed placement of ETT with the CMAC. I was unable to obtain a capnometer reading but breath sounds were appreciable. Patient was difficult to bag - she did have breath sounds to her left lung base - it was presumed that patient had a pneumothorax. Dr. Webb happened to be in the ER at that time - he assisted in placing the chest tube as I was trying to obtain IV access as the initial access was infiltrated. Anesthesia was at bedside and confirmed initial ETT placement when CMAC was used to confirm ETT placement. Patient did go into an PEA rhythm and ACLS protocol was initiated. An IO was placed to the left tibia which was used for resuscitation efforts. After Dr. Webb placed the chest tube - we were able to bag patient without any resistance. Patient then began to desat - At the same time, radiologist called and was concerned that ETT may be placed in the esophagus. I asked Dr. Jaramillo to assist with the airways. Anesthesia was recalled to assist with the airway. Dr. Jaramillo was able to place a 7.0 ETT which was confirmed by anesthesiologist who arrived at bedside. Patient had spontaneous regain of pulses. She was stabilized and started on a EPI drip. A central line was placed to the right groin by Dr. Webb. It was found that the line was arterial - Dr. Manjarrez assisted in converting this central line into an arterial line - he did place a left sided femoral central venous access. Patient then went into PEA arrest - ACLS protocol was initiated and she had spontaneous regain of pulses. Levophed drip was added in addition to the Epi drip. Decision was not to perform hypothermia protocol as patient was too unstable for that. Broad spectrum antibiotics were initiated as there were concerns for a possible infection - blood cultures were obtained. Family was notified and updated that the patient was in critical condition - they are at bedside. Patient was admitted to the telephone assembler service. Medical Screen Exam Complete: Yes Emergency Medical Condition: Yes Medical Records Medical records reviewed: Yes I reviewed the patient's medical records. Lab Data Result diagrams: 09/11/18 16:10 09/11/18 16:10 Lab Results 09/11/18 09/11/18 09/11/18 Range/Units 16:10 16:10 16:10 WBC 20.7 H (4.0-11.0) th/mm3 RBC 3.07 L (4.00-5.30) mil/mm3 Hgb 10.0 L (11.6-15.3) gm/dL Hct 30.8 L (35.0-46.0) % MCV 100.3 H (80.0-100.0) fL MCH 32.5 (27.0-34.0) pg MCHC 32.4 (32.0-36.0) % RDW 16.1 (11.6-17.2) % Plt Count 241 (150-450) th/mm3 MPV 9.4 (7.0-11.0) fL Prelim Diff (Auto) Slide review pending Neut % (Auto) 70.6 H (16.0-70.0) % Lymph % (Auto) 23.1 (9.0-44.0) % Stone % (Auto) 4.7 (0.0-8.0) % Eos % (Auto) 1.2 (0.0-4.0) % Baso % (Auto) 0.4 (0.0-2.0) % Neut # (Auto) 14.6 H (1.8-7.7) th/mm3 Lymph # (Auto) 4.8 (1.0-4.8) th/mm3 Stone # (Auto) 1.0 H (0.0-0.9) th/mm3 Eos # (Auto) 0.2 (0.0-0.4) th/mm3 Baso # (Auto) 0.1 (0.0-0.2) th/mm3 WBC Differential Manual diff final Seg Neuts % (Manual) 61 (16-70) % Band Neuts % (Manual) 8 H (0-6) % Lymphocytes % (Manual) 25 (9-44) % Monocytes % (Manual) 5 (0-8) % Metamyelocytes % (Man) 1 (0-1) % Abs Neuts (Manual) 14.5 H (1.8-7.7) th/mm3 Differential Comment . Platelet Estimate Normal (Normal) Platelet Morphology Normal (Normal) PT 11.7 H (9.8-11.6) sec INR 1.2 Ratio APTT 37.1 H (23.4-31.7) sec Puncture Site Patient Temperature O2 Saturation (90-100) % ABG pH (7.380-7.420) ABG pCO2 (38-42) mmHg ABG pO2 (61-120) mmHG ABG HCO3 (22-26) mmol/L ABG O2 Content (12.0-20.0) Vol % ABG Base Excess (-2-2) mmol/L ABG Methemoglobin (0-2) % VBG pH (7.360-7.400) VBG pCO2 (44-48) mmHG VBG pO2 (35-40) mmHG VBG HCO3 (22-26) mmol/L VBG O2 Saturation (70-76) % VBG O2 Content (9.0-17.0) Vol % VBG Base Excess (-2-2) mmol/L VBG Carboxyhemoglobin (0-4) % VBG Methemoglobin (0-2) % Hemoglobin (12.0-16.0) G/DL Carboxyhemoglobin (0-4) % O2 Delivery Device Liter Flow L/M Vent Setting Inspired O2 % Critical Value Sodium 144 (136-145) meq/L Potassium 2.5 L* (3.5-5.1) meq/L Chloride 101 (98-107) meq/L Carbon Dioxide 18.1 L (21.0-32.0) meq/L Anion Gap 25 H (5-15) meq/L BUN 16 (7-18) mg/dL Creatinine 1.31 H (0.50-1.00) mg/dL Estimated GFR 41 L (>89) mL/min POC Glucose (68-110) mg/dl Random Glucose 429 H (74-106) mg/dL Lactic Acid (0.4-2.0) mmol/L Calcium 9.7 (8.5-10.1) mg/dL Magnesium (1.5-2.5) mg/dL Total Bilirubin 0.3 (0.2-1.0) mg/dL Direct Bilirubin 0.1 (0.0-0.2) mg/dL AST 245 H (15-37) U/L ALT 197 H (10-53) U/L Alkaline Phosphatase 98 (45-117) U/L Ammonia (11-32) mcmol/L Total Creatine Kinase 161 (26-192) U/L CK-MB (CK-2) 2.6 (0.5-3.6) ng/mL Troponin I 0.24 H (0.02-0.05) ng/mL B-Natriuretic Peptide (0-100) pg/mL Total Protein 5.2 L (6.4-8.2) g/dL Albumin 2.7 L (3.4-5.0) g/dL Lipase 127 (73-393) U/L Urine Color (Yellw/Straw) Urine Clarity (Clear) Urine pH (5.0-8.5) Ur Specific [place] (1.002-1.035) Urine Protein (Neg-Trace) mg/dL Urine Glucose (UA) (Negative) mg/dL Urine Ketones (Negative) mg/dL Urine Occult Blood (Negative) Urine Nitrate (Negative) Urine Bilirubin (Negative) Urine Urobilinogen (Less than 2) mg/dL Ur Leukocyte Esterase (Negative) Urine RBC (0-3) /hpf Urine WBC (0-5) /hpf Ur Squamous Epith Cells (0-5) /hpf Urine Bacteria (None) /hpf Micro UA Comment Ur Microscopic Review Urine Culture Comments Nasal Screen MRSA (PCR) (Negative) Urine Opiates Screen (Neg) Ur Barbiturates Screen (Neg) Ur Amphetamines Screen (Neg) U Benzodiazepines Scrn (Neg) Urine Cocaine Screen (Neg) U Cannabinoids Screen (Neg) 09/11/18 09/11/18 09/11/18 Range/Units 16:10 16:10 16:40 WBC (4.0-11.0) th/mm3 RBC (4.00-5.30) mil/mm3 Hgb (11.6-15.3) gm/dL Hct (35.0-46.0) % MCV (80.0-100.0) fL MCH (27.0-34.0) pg MCHC (32.0-36.0) % RDW (11.6-17.2) % Plt Count (150-450) th/mm3 MPV (7.0-11.0) fL Prelim Diff (Auto) Neut % (Auto) (16.0-70.0) % Lymph % (Auto) (9.0-44.0) % Stone % (Auto) (0.0-8.0) % Eos % (Auto) (0.0-4.0) % Baso % (Auto) (0.0-2.0) % Neut # (Auto) (1.8-7.7) th/mm3 Lymph # (Auto) (1.0-4.8) th/mm3 Stone # (Auto) (0.0-0.9) th/mm3 Eos # (Auto) (0.0-0.4) th/mm3 Baso # (Auto) (0.0-0.2) th/mm3 WBC Differential Seg Neuts % (Manual) (16-70) % Band Neuts % (Manual) (0-6) % Lymphocytes % (Manual) (9-44) % Monocytes % (Manual) (0-8) % Metamyelocytes % (Man) (0-1) % Abs Neuts (Manual) (1.8-7.7) th/mm3 Differential Comment Platelet Estimate (Normal) Platelet Morphology (Normal) PT (9.8-11.6) sec INR Ratio APTT (23.4-31.7) sec Puncture Site Peripheral line Patient Temperature 98.6 O2 Saturation (90-100) % ABG pH (7.380-7.420) ABG pCO2 (38-42) mmHg ABG pO2 (61-120) mmHG ABG HCO3 (22-26) mmol/L ABG O2 Content (12.0-20.0) Vol % ABG Base Excess (-2-2) mmol/L ABG Methemoglobin (0-2) % VBG pH 7.30 L (7.360-7.400) VBG pCO2 116 H* (44-48) mmHG VBG pO2 18 L* (35-40) mmHG VBG HCO3 55 H (22-26) mmol/L VBG O2 Saturation 12 L (70-76) % VBG O2 Content 1.3 L (9.0-17.0) Vol % VBG Base Excess 26.7 H (-2-2) mmol/L VBG Carboxyhemoglobin 0.3 (0-4) % VBG Methemoglobin 0.7 (0-2) % Hemoglobin 7.2 L (12.0-16.0) G/DL Carboxyhemoglobin (0-4) % O2 Delivery Device Ambu to tube Liter Flow 15.00 L/M Vent Setting Inspired O2 100 % Critical Value Yes Sodium (136-145) meq/L Potassium (3.5-5.1) meq/L Chloride (98-107) meq/L Carbon Dioxide (21.0-32.0) meq/L Anion Gap (5-15) meq/L BUN (7-18) mg/dL Creatinine (0.50-1.00) mg/dL Estimated GFR (>89) mL/min POC Glucose (68-110) mg/dl Random Glucose (74-106) mg/dL Lactic Acid (0.4-2.0) mmol/L Calcium (8.5-10.1) mg/dL Magnesium 2.8 H (1.5-2.5) mg/dL Total Bilirubin (0.2-1.0) mg/dL Direct Bilirubin (0.0-0.2) mg/dL AST (15-37) U/L ALT (10-53) U/L Alkaline Phosphatase (45-117) U/L Ammonia (11-32) mcmol/L Total Creatine Kinase (26-192) U/L CK-MB (CK-2) (0.5-3.6) ng/mL Troponin I (0.02-0.05) ng/mL B-Natriuretic Peptide 55 (0-100) pg/mL Total Protein (6.4-8.2) g/dL Albumin (3.4-5.0) g/dL Lipase (73-393) U/L Urine Color (Yellw/Straw) Urine Clarity (Clear) Urine pH (5.0-8.5) Ur Specific [place] (1.002-1.035) Urine Protein (Neg-Trace) mg/dL Urine Glucose (UA) (Negative) mg/dL Urine Ketones (Negative) mg/dL Urine Occult Blood (Negative) Urine Nitrate (Negative) Urine Bilirubin (Negative) Urine Urobilinogen (Less than 2) mg/dL Ur Leukocyte Esterase (Negative) Urine RBC (0-3) /hpf Urine WBC (0-5) /hpf Ur Squamous Epith Cells (0-5) /hpf Urine Bacteria (None) /hpf Micro UA Comment Ur Microscopic Review Urine Culture Comments Nasal Screen MRSA (PCR) (Negative) Urine Opiates Screen (Neg) Ur Barbiturates Screen (Neg) Ur Amphetamines Screen (Neg) U Benzodiazepines Scrn (Neg) Urine Cocaine Screen (Neg) U Cannabinoids Screen (Neg) 09/11/18 09/11/18 09/11/18 Range/Units 18:20 19:55 19:55 WBC (4.0-11.0) th/mm3 RBC (4.00-5.30) mil/mm3 Hgb (11.6-15.3) gm/dL Hct (35.0-46.0) % MCV (80.0-100.0) fL MCH (27.0-34.0) pg MCHC (32.0-36.0) % RDW (11.6-17.2) % Plt Count (150-450) th/mm3 MPV (7.0-11.0) fL Prelim Diff (Auto) Neut % (Auto) (16.0-70.0) % Lymph % (Auto) (9.0-44.0) % Stone % (Auto) (0.0-8.0) % Eos % (Auto) (0.0-4.0) % Baso % (Auto) (0.0-2.0) % Neut # (Auto) (1.8-7.7) th/mm3 Lymph # (Auto) (1.0-4.8) th/mm3 Stone # (Auto) (0.0-0.9) th/mm3 Eos # (Auto) (0.0-0.4) th/mm3 Baso # (Auto) (0.0-0.2) th/mm3 WBC Differential Seg Neuts % (Manual) (16-70) % Band Neuts % (Manual) (0-6) % Lymphocytes % (Manual) (9-44) % Monocytes % (Manual) (0-8) % Metamyelocytes % (Man) (0-1) % Abs Neuts (Manual) (1.8-7.7) th/mm3 Differential Comment Platelet Estimate (Normal) Platelet Morphology (Normal) PT (9.8-11.6) sec INR Ratio APTT (23.4-31.7) sec Puncture Site Art line Patient Temperature 98.6 O2 Saturation 96 (90-100) % ABG pH 7.23 L* (7.380-7.420) ABG pCO2 42 (38-42) mmHg ABG pO2 267 H (61-120) mmHG ABG HCO3 17 L (22-26) mmol/L ABG O2 Content 13.8 (12.0-20.0) Vol % ABG Base Excess -9.3 L (-2-2) mmol/L ABG Methemoglobin 2.2 H (0-2) % VBG pH (7.360-7.400) VBG pCO2 (44-48) mmHG VBG pO2 (35-40) mmHG VBG HCO3 (22-26) mmol/L VBG O2 Saturation (70-76) % VBG O2 Content (9.0-17.0) Vol % VBG Base Excess (-2-2) mmol/L VBG Carboxyhemoglobin (0-4) % VBG Methemoglobin (0-2) % Hemoglobin 9.7 L (12.0-16.0) G/DL Carboxyhemoglobin 0.4 (0-4) % O2 Delivery Device Ventilator Liter Flow L/M Vent Setting Prvc/ac 550/20 Inspired O2 100 % Critical Value Yes Sodium (136-145) meq/L Potassium (3.5-5.1) meq/L Chloride (98-107) meq/L Carbon Dioxide (21.0-32.0) meq/L Anion Gap (5-15) meq/L BUN (7-18) mg/dL Creatinine (0.50-1.00) mg/dL Estimated GFR (>89) mL/min POC Glucose (68-110) mg/dl Random Glucose (74-106) mg/dL Lactic Acid 14.1 H* (0.4-2.0) mmol/L Calcium (8.5-10.1) mg/dL Magnesium (1.5-2.5) mg/dL Total Bilirubin (0.2-1.0) mg/dL Direct Bilirubin (0.0-0.2) mg/dL AST (15-37) U/L ALT (10-53) U/L Alkaline Phosphatase (45-117) U/L Ammonia 37 H (11-32) mcmol/L Total Creatine Kinase (26-192) U/L CK-MB (CK-2) (0.5-3.6) ng/mL Troponin I (0.02-0.05) ng/mL B-Natriuretic Peptide (0-100) pg/mL Total Protein (6.4-8.2) g/dL Albumin (3.4-5.0) g/dL Lipase (73-393) U/L Urine Color (Yellw/Straw) Urine Clarity (Clear) Urine pH (5.0-8.5) Ur Specific [place] (1.002-1.035) Urine Protein (Neg-Trace) mg/dL Urine Glucose (UA) (Negative) mg/dL Urine Ketones (Negative) mg/dL Urine Occult Blood (Negative) Urine Nitrate (Negative) Urine Bilirubin (Negative) Urine Urobilinogen (Less than 2) mg/dL Ur Leukocyte Esterase (Negative) Urine RBC (0-3) /hpf Urine WBC (0-5) /hpf Ur Squamous Epith Cells (0-5) /hpf Urine Bacteria (None) /hpf Micro UA Comment Ur Microscopic Review Urine Culture Comments Nasal Screen MRSA (PCR) (Negative) Urine Opiates Screen (Neg) Ur Barbiturates Screen (Neg) Ur Amphetamines Screen (Neg) U Benzodiazepines Scrn (Neg) Urine Cocaine Screen (Neg) U Cannabinoids Screen (Neg) 09/11/18 09/11/18 09/11/18 Range/Units 20:00 20:45 20:45 WBC (4.0-11.0) th/mm3 RBC (4.00-5.30) mil/mm3 Hgb (11.6-15.3) gm/dL Hct (35.0-46.0) % MCV (80.0-100.0) fL MCH (27.0-34.0) pg MCHC (32.0-36.0) % RDW (11.6-17.2) % Plt Count (150-450) th/mm3 MPV (7.0-11.0) fL Prelim Diff (Auto) Neut % (Auto) (16.0-70.0) % Lymph % (Auto) (9.0-44.0) % Stone % (Auto) (0.0-8.0) % Eos % (Auto) (0.0-4.0) % Baso % (Auto) (0.0-2.0) % Neut # (Auto) (1.8-7.7) th/mm3 Lymph # (Auto) (1.0-4.8) th/mm3 Stone # (Auto) (0.0-0.9) th/mm3 Eos # (Auto) (0.0-0.4) th/mm3 Baso # (Auto) (0.0-0.2) th/mm3 WBC Differential Seg Neuts % (Manual) (16-70) % Band Neuts % (Manual) (0-6) % Lymphocytes % (Manual) (9-44) % Monocytes % (Manual) (0-8) % Metamyelocytes % (Man) (0-1) % Abs Neuts (Manual) (1.8-7.7) th/mm3 Differential Comment Platelet Estimate (Normal) Platelet Morphology (Normal) PT (9.8-11.6) sec INR Ratio APTT (23.4-31.7) sec Puncture Site Patient Temperature O2 Saturation (90-100) % ABG pH (7.380-7.420) ABG pCO2 (38-42) mmHg ABG pO2 (61-120) mmHG ABG HCO3 (22-26) mmol/L ABG O2 Content (12.0-20.0) Vol % ABG Base Excess (-2-2) mmol/L ABG Methemoglobin (0-2) % VBG pH (7.360-7.400) VBG pCO2 (44-48) mmHG VBG pO2 (35-40) mmHG VBG HCO3 (22-26) mmol/L VBG O2 Saturation (70-76) % VBG O2 Content (9.0-17.0) Vol % VBG Base Excess (-2-2) mmol/L VBG Carboxyhemoglobin (0-4) % VBG Methemoglobin (0-2) % Hemoglobin (12.0-16.0) G/DL Carboxyhemoglobin (0-4) % O2 Delivery Device Liter Flow L/M Vent Setting Inspired O2 % Critical Value Sodium (136-145) meq/L Potassium (3.5-5.1) meq/L Chloride (98-107) meq/L Carbon Dioxide (21.0-32.0) meq/L Anion Gap (5-15) meq/L BUN (7-18) mg/dL Creatinine (0.50-1.00) mg/dL Estimated GFR (>89) mL/min POC Glucose (68-110) mg/dl Random Glucose (74-106) mg/dL Lactic Acid (0.4-2.0) mmol/L Calcium (8.5-10.1) mg/dL Magnesium (1.5-2.5) mg/dL Total Bilirubin (0.2-1.0) mg/dL Direct Bilirubin (0.0-0.2) mg/dL AST (15-37) U/L ALT (10-53) U/L Alkaline Phosphatase (45-117) U/L Ammonia (11-32) mcmol/L Total Creatine Kinase (26-192) U/L CK-MB (CK-2) (0.5-3.6) ng/mL Troponin I (0.02-0.05) ng/mL B-Natriuretic Peptide (0-100) pg/mL Total Protein (6.4-8.2) g/dL Albumin (3.4-5.0) g/dL Lipase (73-393) U/L Urine Color Yellow (Yellw/Straw) Urine Clarity Clear (Clear) Urine pH 5.0 (5.0-8.5) Ur Specific [place] 1.008 (1.002-1.035) Urine Protein Negative (Neg-Trace) mg/dL Urine Glucose (UA) 500 or greater (Negative) mg/dL Urine Ketones Trace H (Negative) mg/dL Urine Occult Blood Small H (Negative) Urine Nitrate Negative (Negative) Urine Bilirubin Negative (Negative) Urine Urobilinogen Less than 2 (Less than 2) mg/dL Ur Leukocyte Esterase Negative (Negative) Urine RBC 1 (0-3) /hpf Urine WBC 1 (0-5) /hpf Ur Squamous Epith Cells 1 (0-5) /hpf Urine Bacteria Rare H (None) /hpf Micro UA Comment Culture not ind Ur Microscopic Review Not Reportable Urine Culture Comments Culture not ind Nasal Screen MRSA (PCR) Not detected (Negative) Urine Opiates Screen Neg (Neg) Ur Barbiturates Screen Neg (Neg) Ur Amphetamines Screen Neg (Neg) U Benzodiazepines Scrn Pos H (Neg) Urine Cocaine Screen Neg (Neg) U Cannabinoids Screen Pos H (Neg) 09/11/18 09/11/18 Range/Units 21:11 23:35 WBC (4.0-11.0) th/mm3 RBC (4.00-5.30) mil/mm3 Hgb (11.6-15.3) gm/dL Hct (35.0-46.0) % MCV (80.0-100.0) fL MCH (27.0-34.0) pg MCHC (32.0-36.0) % RDW (11.6-17.2) % Plt Count (150-450) th/mm3 MPV (7.0-11.0) fL Prelim Diff (Auto) Neut % (Auto) (16.0-70.0) % Lymph % (Auto) (9.0-44.0) % Stone % (Auto) (0.0-8.0) % Eos % (Auto) (0.0-4.0) % Baso % (Auto) (0.0-2.0) % Neut # (Auto) (1.8-7.7) th/mm3 Lymph # (Auto) (1.0-4.8) th/mm3 Stone # (Auto) (0.0-0.9) th/mm3 Eos # (Auto) (0.0-0.4) th/mm3 Baso # (Auto) (0.0-0.2) th/mm3 WBC Differential Seg Neuts % (Manual) (16-70) % Band Neuts % (Manual) (0-6) % Lymphocytes % (Manual) (9-44) % Monocytes % (Manual) (0-8) % Metamyelocytes % (Man) (0-1) % Abs Neuts (Manual) (1.8-7.7) th/mm3 Differential Comment Platelet Estimate (Normal) Platelet Morphology (Normal) PT (9.8-11.6) sec INR Ratio APTT (23.4-31.7) sec Puncture Site Patient Temperature O2 Saturation (90-100) % ABG pH (7.380-7.420) ABG pCO2 (38-42) mmHg ABG pO2 (61-120) mmHG ABG HCO3 (22-26) mmol/L ABG O2 Content (12.0-20.0) Vol % ABG Base Excess (-2-2) mmol/L ABG Methemoglobin (0-2) % VBG pH (7.360-7.400) VBG pCO2 (44-48) mmHG VBG pO2 (35-40) mmHG VBG HCO3 (22-26) mmol/L VBG O2 Saturation (70-76) % VBG O2 Content (9.0-17.0) Vol % VBG Base Excess (-2-2) mmol/L VBG Carboxyhemoglobin (0-4) % VBG Methemoglobin (0-2) % Hemoglobin (12.0-16.0) G/DL Carboxyhemoglobin (0-4) % O2 Delivery Device Liter Flow L/M Vent Setting Inspired O2 % Critical Value Sodium (136-145) meq/L Potassium (3.5-5.1) meq/L Chloride (98-107) meq/L Carbon Dioxide (21.0-32.0) meq/L Anion Gap (5-15) meq/L BUN (7-18) mg/dL Creatinine (0.50-1.00) mg/dL Estimated GFR (>89) mL/min POC Glucose 397 H (68-110) mg/dl Random Glucose (74-106) mg/dL Lactic Acid (0.4-2.0) mmol/L Calcium (8.5-10.1) mg/dL Magnesium (1.5-2.5) mg/dL Total Bilirubin (0.2-1.0) mg/dL Direct Bilirubin (0.0-0.2) mg/dL AST (15-37) U/L ALT (10-53) U/L Alkaline Phosphatase (45-117) U/L Ammonia (11-32) mcmol/L Total Creatine Kinase (26-192) U/L CK-MB (CK-2) (0.5-3.6) ng/mL Troponin I 4.26 H* D (0.02-0.05) ng/mL B-Natriuretic Peptide (0-100) pg/mL Total Protein (6.4-8.2) g/dL Albumin (3.4-5.0) g/dL Lipase (73-393) U/L Urine Color (Yellw/Straw) Urine Clarity (Clear) Urine pH (5.0-8.5) Ur Specific [place] (1.002-1.035) Urine Protein (Neg-Trace) mg/dL Urine Glucose (UA) (Negative) mg/dL Urine Ketones (Negative) mg/dL Urine Occult Blood (Negative) Urine Nitrate (Negative) Urine Bilirubin (Negative) Urine Urobilinogen (Less than 2) mg/dL Ur Leukocyte Esterase (Negative) Urine RBC (0-3) /hpf Urine WBC (0-5) /hpf Ur Squamous Epith Cells (0-5) /hpf Urine Bacteria (None) /hpf Micro UA Comment Ur Microscopic Review Urine Culture Comments Nasal Screen MRSA (PCR) (Negative) Urine Opiates Screen (Neg) Ur Barbiturates Screen (Neg) Ur Amphetamines Screen (Neg) U Benzodiazepines Scrn (Neg) Urine Cocaine Screen (Neg) U Cannabinoids Screen (Neg) Imaging Data Radiologist's impression: Chest X-Ray 09/11/18 00:00 CONCLUSION: ET tube in a low position in the mid chest. There is very prominent gaseous distention raising the possibly it may be in the mid esophagus. It is in the trachea, it is at the [place]. Cardiomegaly. Chest X-Ray 09/11/18 17:11 CONCLUSION: Endotracheal tube tip is at the [place]. Nasogastric tube courses into the stomach. New right chest tube. No pneumothorax. Trace atelectasis of both bases. Lungs otherwise appear clear. ECG Data EKG Prior to Arrival: No Attestation: I personally reviewed and interpreted this ECG as follows: Interpretation: EKG at 1623: RBBB at 55bpm, qt/qtc: 499/489 Discharge Plan Discharge Disposition Patient Disposition: ED Admit(ED Internal Use Only) Discharge Condition Condition: Critical Discharge Order Discharge Orders: ED Use Only Admit Order (Routine); Ordered 09/11/18 Ordered By: Miranda Capone Discharge Details Diagnosis: Cardiac arrest Date/Time: 09/12/18 03:15 Physicians Team ED Provider: Phyllis Hazel Primary Care Provider: Primary Care Sharmila Peters Attending Provider: Beata Collado Other Providers: Alexys Reardon ; Carlos Mart ; Chris Wang ; Dusty Collins Status ED Status: Left Department Discharge Information Discharge Date/Time: 09/11/18 20:36
[2018-09-11 18:27] LABS: Alanine Aminotransferase 197 U/L (10-53); Albumin 2.7 g/dL (3.4-5.0); Alkaline Phosphatase 98 U/L (45-117); Anion Gap 25 meq/L (5-15); Aspartate Aminotransferase 245 U/L (15-37); Blood Urea Nitrogen 16 mg/dL (7-18); Calcium 9.7 mg/dL (8.5-10.1); Carbon Dioxide 18.1 meq/L (21.0-32.0); Chloride 101 meq/L (98-107); Creatine Kinase 161 U/L (26-192); Glomerular Filtration Rate 41 mL/min (>89); Glucose,Random 429 mg/dL (74-106); Lipase 127 U/L (73-393); Sodium 144 meq/L (136-145); Total Protein 5.2 g/dL (6.4-8.2); Troponin I 0.24 ng/mL (0.02-0.05)
[2018-09-11 18:27] LABS: ABG Base Excess -9.3 mmol/L (-2-2); ABG PCO2 42 mmHg (38-42); ABG PO2 267 mmHG (61-120)
[2018-09-11 18:29] LABS: Potassium 2.5 meq/L (3.5-5.1)
[2018-09-11 18:43] LABS: Creatine Kinase MB 2.6 ng/mL (0.5-3.6)
[2018-09-11 18:45] LABS: Lymphocytes 25 % (9-44); Metamyelocytes 1 % (0-1); Monocytes 5 % (0-8); Platelet Estimate Normal (Normal); Platelet Morphology Normal (Normal)
--- NOTE | 2018-09-11 18:45 | P.PCN ---
Date of procedure: 09/11/18 Pre-op diagnosis: Cardiac arrest Post-op diagnosis: same Procedure: PROCEDURE PERFORMED Right femoral vein central venous catheter placement INDICATIONS Central vascular axis INFORMED CONSENT Not obtained as this was an emergent procedure ANESTHESIA 1% Lidocaine for local infiltration anesthesia. PROCEDURE After sterile prepping and draping using 1% lidocaine for local infiltration anesthesia, the right femoral vein was cannulated using an introducer needle with dark non-pulsatile blood return following which a guidewire was passed through the introducer needle into the right femoral vein without any resistance and the needle was then removed. After making a skin zane and dilation of tract, a 20 cm antimicrobial coated triple lumen catheter was passed over the guidewire by modified Seldinger technique into the right femoral vein up to the 19 cm deyanira and the guidewire was then removed. Good blood return obtained through all three ports which were then flushed and capped. After securing the catheter in place with sutures, a Bio-occlusive dressing with Biopatch was applied to the site. The patient tolerated the procedure well with no immediate complications noted. StatLock attempted to secure central line however would not stick to the skin due to extreme moisture hence it was removed and replaced with sutures to secure the central line. Condition: critical
[2018-09-11] MEDS ORDERED: Bisacodyl 10 MG Supp RECTAL PRN (19:00)
[2018-09-11] MEDS ORDERED: Vancomycin Consult Pharmacy OTHER PRN (19:06)
[2018-09-11] MEDS ORDERED: Potassium Phosphate 500 MG Soluble Tablet PO PRN ×2 (19:08)
[2018-09-11] MEDS ORDERED: Magnesium Sulfate Inj 4 GM in Sodium Chlor 0.9% Inj 92 ML IV.SIG PRN (19:08)
[2018-09-11] MEDS ORDERED: Potassium Chloride 25 MEQ Effervescent Tablet PO PRN (19:08)
[2018-09-11] MEDS ORDERED: Potassium Phosphate Inj 30 MMOL in Sodium Chlor 0.9% Inj 250 ML IV.SIG PRN (19:08)
[2018-09-11] MEDS ORDERED: Potassium Chlor 40 mEq Premix 40 MEQ/100 ML PIGGYBACK IV.SIG PRN ×2 (19:08)
[2018-09-11] MEDS ORDERED: Magnesium Oxide 400 MG Tablet PO PRN (19:08)
[2018-09-11] MEDS ORDERED: Potassium Chlor 20 mEq Premix 20 MEQ/100 ML PIGGYBACK IV.SIG PRN ×2 (19:08)
[2018-09-11] MEDS ORDERED: Sodium Phosphate Inj 30 MMOL in Sodium Chlor 0.9% Inj 250 ML IV.SIG PRN (19:08)
[2018-09-11] MEDS ORDERED: Magnesium Sulfate Inj 2 GM in Sodium Chlor 0.9% Inj 96 ML IV.SIG PRN (19:08)
[2018-09-11] MEDS ORDERED: Dextrose 50% in Water 50 ML Vial IV.PUSH PRN (19:10)
--- NOTE | 2018-09-11 19:14 | ECG ---
Date Performed: 09/11/2018 Time Performed: 16:23:02 PTAGE: 68 years EKG: UNCERTAIN REGULAR RHYTHM, POSSIBLE ATRIAL FIBRILLATION WITH JUNCTIONAL RHYTHM RIGHT BUNDLE BRANCH BLOCK ABNORMAL ECG Compared to PREVIOUS TRACING , a fib with controlled VR no longer present DOCTOR: Bud Corona Interpretating Date/Time 09/11/2018 19:13:46
[2018-09-11] MEDS ORDERED: Sod Chloride 0.9% Inj 1,000 ML IV.CONT SCH (19:30)
[2018-09-11] MEDS ORDERED: fentaNYL 10 mcg/mL Premix Drip 2,500 MCG/250 ML BAG IV.SIG PRN (19:30)
[2018-09-11] MEDS ORDERED: fentaNYL Citrate Inj 100 MCG/2 ML Ampul ONE (19:34)
--- NOTE | 2018-09-11 19:36 | XR ---
EXAM DATE: 09/11/2018 7:30 PM EST AGE/SEX: 68 years / Female INDICATIONS: Post ET tube placement. Chest tube placement and OG tube placement. CLINICAL DATA: This is the patient's subsequent encounter. Patient reports that signs and symptoms h ave been present for 1 day and indicates a pain score of Nonresponsive. MEDICAL/SURGICAL HISTORY: Non-responsive. Non-responsive. [place] [facility] [place]. . FINDINGS: Trace bibasilar atelectasis. No effusion or pneumothorax demonstrated. Endotracheal tube tip is at the soledad. There is now a nasogastric tube that courses into the stomach. There is now a right chest tube which projects over the right perihilar region. Right chest wall emphysema is noted. I don't see a pneumoth orax. CONCLUSION: Endotracheal tube tip is at the soledad. Nasogastric tube courses into the stomach. New right chest tube. No pneumothorax. Trace atelectasis of both bases. Lungs otherwise appear clear. Electronically signed by: Larry Davalos MD 09/11/2018 7:34 PM EST
--- NOTE | 2018-09-11 19:56 | P.CONPAL ---
Consult Service: Palliative Care Requesting Physician: Simon Jameson Reason for Consult: a. To assist with evaluation and management of symptoms including:pain, dyspnea. b. To assist medical decision maker(s) with: better understanding of current medical conditions; weighing benefits/burdens of medical treatment options; making medical treatment decisions. Primary Care Provider: No Primary Care Physician History of Present Illness History of Present Illness: Ms. Martinez is a 68 year old female with past medical history of hypertension, hypothyroidism, depression, anemia, hemorrhoids and recent seizure. Patient presented to [facility] emergency department via EMS after she dropped to her knees, was unresponsive at work. Upon EMS arrival she was found to be in V. Fib arrest. She was shocked and went into sinus tach. She was unresponsive. EMS attempted intubation x 2. She arrived to the ER with distended abdomen, chest x-ray revealed ETT in low position possible in mid esophagus, cardiomegaly. Right chest tube was placed in the ED and left femoral central line attempted, was arterial. Therefore, right femoral central line was later placed. Per nursing and family report the patient was coded multiple times with CPR for at least 1 hour. Upon arrival to the ICU patient is on mech vent, FiO2 1005, PEEP 8, not breathing over vent. No cough, gag or corneal reflexes, pupils dilated. She does not withdraw to painful stimuli off sedation. She on on Epi and Levophed drips. Palliative care was consulted to assist with communication and clarification of goals of medical treatment. Dr. Sandoval and I met with family, 2 daughters ( Renae and Rm), son in law, granddaughter and family metal leaf layer. Family elected NO CODE. Reviewed plan for continued supportive care and additional testing (EEG , Echo, labs). Family understands concern for anoxic brain injury, she is not a candidate for hypothermia. Palliative care number provided will continue to provide medical update and clarify goals in the next 24-48 hours. 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 Review of Systems unobtainable due to endotracheal tube, unobtainable due to mental status PMFSH - Medical History Medical History: Medical History (Last Updated 09/11/18 @ 19:52 by Fide Thomas) Anemia Depression Hemorrhoids Hypertension Hypothyroidism Seizure - Surgical History Surgical History: Surgical History (Last Updated 09/11/18 @ 19:53 by Fide Thomas) History of cholecystectomy History of colonoscopy History of esophagogastroduodenoscopy (EGD) - Family History Family History: Family History (Last Updated 09/11/18 @ 19:54 by Fide Thomas) Father Myocardial infarct Mother Obesity Heart disease Mother Hypertension - Social History I have reviewed the patient's Social History: Yes - Tobacco History Tobacco Use In Past 30 Days: No - Alcohol History How Often Do You Have a Drink Containing Alcohol: Never - Substance Use Type Marijuana Status: Active Frequency: daily Medications and Allergies Active Medications: Active Medications Al Hydroxide/Mg Hydroxide (Milk Of Magncas Liq) 30 ml PO Q12H PRN PRN Reason: Mild Constipation Albuterol (Duoneb Neb (Monse)) 1 ampul NEB Q4HR NEB MONSE Bisacodyl (Dulcolax Supp) 10 mg RECTAL DAILY PRN PRN Reason: SEVERE CONSITIPATION Chlorhexidine Gluconate (Chlorhexidine 2% Cloth) 3 pack TOPICAL DAILY@0400 MONSE Stop: 09/17/18 03:59 Chlorhexidine Gluconate (Chlorhexidine 2% Cloth) 3 pack TOPICAL DAILY@0400 PRN PRN Reason: Extra cloth needed Stop: 09/17/18 03:59 Dextrose (D50w Vial) 50 ml IV.PUSH UNSCH PRN PRN Reason: PER HYPOGLYCEMIA PROTOCOL Glucagon (Glucagon Inj) 1 mg OTHER PRN PRN PRN Reason: for Hypoglycemia Protocol Epinephrine HCl 2 mg/ Dextrose 250 mls @ 22.5 mls/hr IV.CONT TITRATE PRN; Protocol PRN Reason: Per Protocol Magnesium Sulfate 4 gm/ Sodium (Chloride) 100 mls @ 50 mls/hr IV.SIG UNSCH PRN PRN Reason: For Magnesium 0.9 - 1.1 mg/dL Magnesium Sulfate 2 gm/ Sodium (Chloride) 100 mls @ 50 mls/hr IV.SIG UNSCH PRN PRN Reason: For Magnesium 1.2 - 1.6 mg/dL Potassium Chloride (Kcl 20 Meq Premix Inj) 20 meq in 100 mls @ 50 mls/hr IV.SIG Q2H PRN PRN Reason: For Potassium 3.3 - 3.5 mEq/L Potassium Chloride (Kcl 40 Meq Premix Inj) 40 meq in 100 mls @ 25 mls/hr IV.SIG UNSCH PRN PRN Reason: For Potassium 3.3 - 3.5 mEq/L Potassium Chloride (Kcl 20 Meq Premix Inj) 20 meq in 100 mls @ 50 mls/hr IV.SIG Q2H PRN PRN Reason: For Potassium 2.8 - 3.2 mEq/L Potassium Phosphate 30 mmol/ (Sodium Chloride) 260 mls @ 42 mls/hr IV.SIG UNSCH PRN PRN Reason: SEE LABEL COMMENTS Piperacillin/Tazobactam/Dextrose (Zosyn 4.5 Gm Premix) 4.5 gm in 100 mls @ 200 mls/hr IV.SIG Q6H MONSE Potassium Chloride (Kcl 40 Meq Premix Inj) 40 meq in 100 mls @ 25 mls/hr IV.SIG Q2H PRN PRN Reason: For Potassium 2.8 - 3.2 mEq/L Sodium Phosphate 30 mmol/ (Sodium Chloride) 260 mls @ 42 mls/hr IV.SIG UNSCH PRN PRN Reason: For Phosphorus < 2.5 mg/dL Sodium Chloride (Ns Inj) 1,000 mls @ 125 mls/hr IV.CONT .Q8H MONSE Insulin Human Regular (Novolin R Correctional Sugar Inj) 0 units SQ Q4HR MONSE; Protocol Lactulose (Lactulose Liq) 30 ml PO DAILY PRN PRN Reason: SEVERE CONSITIPATION Magnesium Oxide (Mag-Ox) 800 mg PO UNSCH PRN PRN Reason: For Magnesium 1.2 - 1.6 mg/dL Pantoprazole Sodium (Protonix Inj) 40 mg IV.PUSH DAILY MONSE Pharmacy Profile Note (Vancomycin Consult Pharmacy) 1 each OTHER UNSCH PRN PRN Reason: Pharmacy to dose Potassium Bicarb/Potassium Chloride (K-Lyte Cl Eff) 50 meq PO UNSCH PRN PRN Reason: For Potassium 3.3 - 3.5 mEq/L Potassium Phosphate (K-Phos Original) 2,000 mg PO Q4H PRN PRN Reason: Phosphorus Less Than 2.5 mg/dL Potassium Phosphate (K-Phos Original) 2,000 mg PO UNSCH PRN PRN Reason: SEE LABEL COMMENTS Sennosides (Senokot) 17.2 mg PO Q12H PRN PRN Reason: Moderate Constipation Sodium Bicarbonate (Sodium Bicarbonate 8.4% Inj) 50 meq IV.PUSH ONCE ONE Stop: 09/11/18 19:08 Sodium Chloride (Ns Flush) 2 ml IV.FLUSH UNSCH PRN PRN Reason: FLUSH AFTER USING IV ACCESS Allergies Allergy/AdvReac Type Severity Reaction Status Date / Time No Known Allergies Allergy Unverified 11/03/17 12:14 Advance Directives Living Will: No Healthcare Surrogate: No Today's verbally stated goals: Patient is not capacitated to make her own health care decisions, uncertain if she will regain capacity. Family/friends goals: NO CODE. Continue supportive care for now. Will readdress goals in the next 24- 48 hours as we get more information. Ethical and Legal Issues: Patient is not capacitated to make her own health care decisions, uncertain if she will regain capacity. No written advance directives. According to [place] statutes, health care proxy decision making falls to her 2 daughters Renae and Rm. Physical Exam Vital Signs: Vital Signs - 24 hr 09/11/18 18:00 09/11/18 18:10 09/11/18 18:54 Respiratory Rate 20 18 Pulse Oximetry 100 100 Physical Exam: CONSTITUTIONAL/GENERAL: This is a critically ill patient, appears older than actual age, on mech vent, no sedation. TUBES/LINES/DRAINS:ETT, PIVs bilateral, right chest tube, right femoral central line, Brown[place]. SKIN: No jaundice, rashes, or lesions. Ecchymoses on upper extremities. Dressing left femoral, skin temperature appropriate. Not diaphoretic. HEAD: Atraumatic. Normocephalic. EYES: Pupils 4mm non-reactive. ENT: Unable to asses hearing. Nose without bleeding or purulent drainage. Mouth with red blood noted. NECK: Trachea midline. CARDIOVASCULAR: tachycardic, irregular. RESPIRATORY/CHEST: On mech vent. Right chest tube. Scattered coarse breath sounds. GASTROINTESTINAL: Abdomen distended. GENITOURINARY: Without palpable bladder distension. Brownlee catheter in place. MUSCULOSKELETAL: Extremities without clubbing, cyanosis, or edema. LYMPHATICS: Not examined. NEUROLOGICAL: Unresponsive, no cough, gag, corneal reflexes, not breathing over vent, off sedation. No withdraw or response to painful stimuli. PSYCHIATRIC: unresponsive off sedation. Diagnostic Tests Laboratory: Laboratory Results - last 72 hr 09/11/18 09/11/18 09/11/18 16:10 16:10 16:10 WBC 20.7 H RBC 3.07 L Hgb 10.0 L Hct 30.8 L MCV 100.3 H MCH 32.5 MCHC 32.4 RDW 16.1 Plt Count 241 MPV 9.4 Prelim Diff (Auto) Slide review pending Neut % (Auto) 70.6 H Lymph % (Auto) 23.1 [place] % (Auto) 4.7 Eos % (Auto) 1.2 Baso % (Auto) 0.4 Neut # (Auto) 14.6 H Lymph # (Auto) 4.8 [place] # (Auto) 1.0 H Eos # (Auto) 0.2 Baso # (Auto) 0.1 WBC Differential Manual diff final Seg Neuts % (Manual) 61 Band Neuts % (Manual) 8 H Lymphocytes % (Manual) 25 Monocytes % (Manual) 5 Metamyelocytes % (Man) 1 Abs Neuts (Manual) 14.5 H Differential Comment . Platelet Estimate Normal Platelet Morphology Normal PT 11.7 H INR 1.2 APTT 37.1 H Puncture Site Patient Temperature O2 Saturation ABG pH ABG pCO2 ABG pO2 ABG HCO3 ABG O2 Content ABG Base Excess ABG Methemoglobin VBG pH VBG pCO2 VBG pO2 VBG HCO3 VBG O2 Saturation VBG O2 Content VBG Base Excess VBG Carboxyhemoglobin VBG Methemoglobin Hemoglobin Carboxyhemoglobin O2 Delivery Device Liter Flow Vent Setting Inspired O2 Critical Value Sodium 144 Potassium 2.5 L* Chloride 101 Carbon Dioxide 18.1 L Anion Gap 25 H BUN 16 Creatinine 1.31 H Estimated GFR 41 L Random Glucose 429 H Calcium 9.7 Magnesium Total Bilirubin 0.3 Direct Bilirubin 0.1 AST 245 H ALT 197 H Alkaline Phosphatase 98 Total Creatine Kinase 161 CK-MB (CK-2) 2.6 Troponin I 0.24 H B-Natriuretic Peptide Total Protein 5.2 L Albumin 2.7 L Lipase 127 09/11/18 09/11/18 09/11/18 16:10 16:10 16:40 WBC RBC Hgb Hct MCV MCH MCHC RDW Plt Count MPV Prelim Diff (Auto) Neut % (Auto) Lymph % (Auto) [place] % (Auto) Eos % (Auto) Baso % (Auto) Neut # (Auto) Lymph # (Auto) [place] # (Auto) Eos # (Auto) Baso # (Auto) WBC Differential Seg Neuts % (Manual) Band Neuts % (Manual) Lymphocytes % (Manual) Monocytes % (Manual) Metamyelocytes % (Man) Abs Neuts (Manual) Differential Comment Platelet Estimate Platelet Morphology PT INR APTT Puncture Site Peripheral line Patient Temperature 98.6 O2 Saturation ABG pH ABG pCO2 ABG pO2 ABG HCO3 ABG O2 Content ABG Base Excess ABG Methemoglobin VBG pH 7.30 L VBG pCO2 116 H* VBG pO2 18 L* VBG HCO3 55 H VBG O2 Saturation 12 L VBG O2 Content 1.3 L VBG Base Excess 26.7 H VBG Carboxyhemoglobin 0.3 VBG Methemoglobin 0.7 Hemoglobin 7.2 L Carboxyhemoglobin O2 Delivery Device Ambu to tube Liter Flow 15.00 Vent Setting Inspired O2 100 Critical Value Yes Sodium Potassium Chloride Carbon Dioxide Anion Gap BUN Creatinine Estimated GFR Random Glucose Calcium Magnesium 2.8 H Total Bilirubin Direct Bilirubin AST ALT Alkaline Phosphatase Total Creatine Kinase CK-MB (CK-2) Troponin I B-Natriuretic Peptide 55 Total Protein Albumin Lipase 09/11/18 18:20 WBC RBC Hgb Hct MCV MCH MCHC RDW Plt Count MPV Prelim Diff (Auto) Neut % (Auto) Lymph % (Auto) [place] % (Auto) Eos % (Auto) Baso % (Auto) Neut # (Auto) Lymph # (Auto) [place] # (Auto) Eos # (Auto) Baso # (Auto) WBC Differential Seg Neuts % (Manual) Band Neuts % (Manual) Lymphocytes % (Manual) Monocytes % (Manual) Metamyelocytes % (Man) Abs Neuts (Manual) Differential Comment Platelet Estimate Platelet Morphology PT INR APTT Puncture Site Art line Patient Temperature 98.6 O2 Saturation 96 ABG pH 7.23 L* ABG pCO2 42 ABG pO2 267 H ABG HCO3 17 L ABG O2 Content 13.8 ABG Base Excess -9.3 L ABG Methemoglobin 2.2 H VBG pH VBG pCO2 VBG pO2 VBG HCO3 VBG O2 Saturation VBG O2 Content VBG Base Excess VBG Carboxyhemoglobin VBG Methemoglobin Hemoglobin 9.7 L Carboxyhemoglobin 0.4 O2 Delivery Device Ventilator Liter Flow Vent Setting Prvc/ac 550/20 Inspired O2 100 Critical Value Yes Sodium Potassium Chloride Carbon Dioxide Anion Gap BUN Creatinine Estimated GFR Random Glucose Calcium Magnesium Total Bilirubin Direct Bilirubin AST ALT Alkaline Phosphatase Total Creatine Kinase CK-MB (CK-2) Troponin I B-Natriuretic Peptide Total Protein Albumin Lipase Result Diagrams: 09/11/18 16:10 09/11/18 16:10 Imaging: Chest X-Ray 09/11/18 17:11 CONCLUSION: Endotracheal tube tip is at the soledad. Nasogastric tube courses into the stomach. New right chest tube. No pneumothorax. Trace atelectasis of both bases. Lungs otherwise appear clear. Procedures: * 09/11/18 - intubated (multiple attempts), attempted left femoral line, right femoral central line placed, right chest tube. Patient/Family Conference Present at Family Conference: Met with daughters, Rm and Renae, ARLEEN (Ashish) , granddaughter and metal leaf layer. Dr. Sandoval also present. Family Conference Time: 60 Family Conference Location: Consult Room Issues Discussed: * Palliative care role, purpose, approach * Additional medical, psychosocial, and spiritual history * Patients general health, functional status, and cognitive changes in the months leading up to the current hospitalization * Patient/family understanding of the current medical problems * Patient/family understanding of prognosis * Patients goals of care as best understood from advance directives and/or conversations and/or values * Current medical treatment options and benefits/burdens of those options * Likely scenarios comparing ongoing aggressive care with a transition to comfort measures only * Questions answered to the best of my ability * Palliative care contact information provided Assessment and Plan - Disease Oriented Problem List (1) Cardiac arrest with ventricular fibrillation (2) Hypertension (3) Hypothyroidism (4) Abdominal distention (5) Anemia (6) Leukocytosis (7) Acute kidney injury (8) Elevated troponin (9) Anoxic brain injury Pertinent Non-Medical Issues: Psychosocial: . Supported by her 2 daughters, Renae and Rm, granddaughter and ARLEEN. Spiritual: Supported by her local metal leaf layer. Legal:Patient is not capacitated to make her own health care decisions, uncertain if she will regain capacity. No written advance directives. According to [place] statutes, health care proxy decision making falls to her 2 daughters Renae and Rm. Ethical issues impacting care: No known concerns at this time. Important Contacts: * Rm Kale, daughter: [phone] * Renae Chester, daughter: [phone] Prognosis: Ms. Martinez is a 68 year old female who suffered V. FIb arrest with prolonged resuscitation efforts > 1 hour, now with signs of anoxic brain injury. Will need to monitor for the next 24-48 hours to determine prognosis. Based on current clinical findings overall prognosis appears poor. Code Status: No Code DNR Plan: * No written advance directives. According to [place] statutes, health care proxy decision making falls to her 2 daughters Renae and Rm. * NO CODE. * Dr. Sandoval and I met with family, 2 daughters (Renae and Rm), son in law, granddaughter and family metal leaf layer. Family elected NO CODE. Reviewed plan for continued supportive care and additional testing (EEG, Echo, labs). Family understands concern for anoxic brain injury, she is not a candidate for hypothermia. Palliative care number provided will continue to provide medical update and clarify goals in the next 24-48 hours. * Family is concerned about patient suffering or being in pain. Has Fentanyl drip ordered, advised nurses to give pain medication if family requests. Family does not want her to in pain. * SYMPTOMS: Pain: due to recent cardiac arrest, prolonged CPR. Has Fentanyl drip ordered if needed. Dyspnea: currently supported by [facility] vent, right chest tube in place. No new medication recommendations at this time. * Discussed with Dr. Collado, Dr. Sandoval and nursing staff. * Palliative care number provided. Will continue to follow throughout hospital course to assist with symptom management and clarification of goals of medical treatment. Appreciation Thank you for the opportunity to participate in the care of Teodora Martinez. Attestation Attestation: To help prompt me to consider important information that might be impacting today's encounter and assessment, information from prior notes written by myself or my colleagues may have been "brought forward" into today's note. My signature on this note, however, is an attestation that I personally performed the exam, history, and/or decision-making noted today, and, unless otherwise indicated, the interactions with patient, family, and staff as well as the review of records all occurred today. I also attest that the listed assessment and stated plan reflect my best clinical judgment today based on the combination of historical information, prior notes, and today's exam/ interactions. When time spent is documented, it refers only to time spent today by the signer, or if indicated, combined time spent today by collaborating physician/nurse practitioner.
[2018-09-11] MEDS ORDERED: Pantoprazole Inj 40 MG Vial IV.PUSH SCH (20:00)
[2018-09-11] MEDS ORDERED: fentaNYL Citrate Inj 100 MCG/2 ML Ampul IV.PUSH ONE (20:00)
--- NOTE | 2018-09-11 20:34 | MH ---
cc: Simon Jameson MD DATE OF ADMISSION: 09/11/2018 HISTORY OF PRESENT ILLNESS: The patient is a 68-year-old female with a past medical history of depression, hypertension, thyroid disease, anemia requiring blood transfusion in November, and hemorrhoids. She presented to [facility] ED with AMS after she was found to be in ventricular fibrillation arrest. 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 When fire rescue arrived on the scene she was found to be in ventricular fibrillation arrest and was shocked once and her rhythm after was sinus tachycardia. When EMS arrived on the scene, patient was a difficult intubation and she was intubated after 2 attempts; however, EMS was unable to obtain a capnometer. On arrival to the ER, she had a significant abdominal distention and the patient had esophageal intubation. She was reintubated by Dr. Hzael; however, she had another esophageal intubation. She was finally intubated by Dr. Jaramillo with ET tube 7.0 cm. The patient was seen by Dr. Manjarrez and he placed a right femoral central line. Also, she was seen by Dr. Webb, who placed a 32-Swazi chest tube thoracostomy, due to a suspicion of a right-sided pneumothorax. A chest x-ray post-intubation showed prominent gaseous distention, cardiomegaly. The patient coded for approximately 1 hour and she also coded a second time in the ED with successful return of spontaneous circulation. Her initial code was ventricular fibrillation arrest and then went into PEA arrest. She was placed on Levophed, which is currently at 20 mcg, and on epinephrine drip at 10 mcg. Her laboratory data significant for hypokalemia with potassium level 2.5, elevated troponin at 0.24 and a leukocytosis with a WBC of 20.7. There is bleeding noted from around the oral mucosa area, likely secondary to intubation. In the ER, she was given vancomycin and Zosyn. PAST MEDICAL HISTORY: Significant for: 1. Hypertension. 2. Depressive disorder. 3. Anemia. 4. Hemorrhoids. 5. Thyroid disease. PAST SURGICAL HISTORY: 1. Cholecystectomy, 2. EGD. 3. Colonoscopy. SOCIAL HISTORY: The patient smokes pot, per family. Nondrinker. FAMILY HISTORY: Coronary artery disease and hypertension runs in the family. MEDICATIONS: Unknown. REVIEW OF SYSTEMS: As per HPI. Rest of review of systems limited. PHYSICAL EXAMINATION: GENERAL: A 68-year-old female status post cardiopulmonary arrest. VITAL SIGNS: Afebrile, pulse of 123, blood pressure 127/75, saturation 100%. Vent settings PRVC rate 20, tidal volume 550, I time 1.0, PEEP of 100% FiO2. HEENT: Atraumatic, normocephalic. Pupils dilated, not reactive. Nonicteric sclerae. Bleeding noted from the oral mucosa area, likely secondary to multiple intubations. NECK: Supple. No JVD, adenopathy or thyromegaly. Trachea in the midline. CARDIOVASCULAR: Tachycardic. Normal S1, S2. No murmurs, rubs or gallops noted. PULMONARY: Bilateral equal air entry. No rales or wheezing. ABDOMEN: Soft, nontender, distended, positive bowel sounds. EXTREMITIES: No cyanosis, clubbing, edema. NEUROLOGIC: Intubated, unresponsive, not on any sedation. No cough reflex. No gag reflex. Pupils dilated. LABORATORY DATA: WBC 20, hemoglobin 10, hematocrit 30, platelet count of 241. Sodium 144, potassium 2.5, chloride 101, CO2 18, BUN 25, creatinine 1.31, glucose 429, magnesium 2.8, AST 245, ALT 197, total bilirubin 0.3. Troponin 0.24. BNP 55. INR 1.2. PT 11.7, PTT 37.1. RADIOGRAPHIC STUDIES: Chest x-ray showed distention of the stomach, atelectasis. EKG showed a regular rhythm and rate 55 beats per minute, possible atrial fibrillation with a junctional rhythm. IMPRESSION: 1. Ventilator-dependent respiratory failure. 2. Status post cardiopulmonary arrest. 3. Likely anoxic brain injury. 4. Elevated troponin. 5. Leukocytosis. 6. Mild acute kidney injury. 7. Hypokalemia. 8. Elevated liver enzymes. 9. Anemia. 10. History of hypertension. 11. History of thyroid disease. RECOMMENDATIONS: 1. Place on fentanyl infusion if needed for sedation. 2. Monitor neuro status closely. We will need a CT brain without contrast when stable. We will obtain EEG and consult neurology for likely anoxic brain injury. 3. I will check a baseline ammonia level and urine drug screen. The patient smokes pot, per family members. 3. Continue with vent support and maintain sats above 92%. 4. Bronchodilators and DuoNeb every 6 hours and will initiate ICU vent bundle. 5. Increased respiratory rate to 24, tidal volume 600 and decrease FIO2 to 50%. ABG was obtained at 1820 showed a pH of 7.23, CO2 42, PaO2 267, bicarbonate 17, saturation 96%. 6. Continue with Levophed and epinephrine drip. Monitor heart rate and blood pressure closely and maintain MAP greater than 65 mmHg. 7. Will check a lactic acid level, monitor CKs with troponins, and will obtain 2-D echo to evaluate LV function. Consult cardiology service. 8. A 32-Swazi right chest tube placed for a presumed pneumothorax. Monitor drainage. 9. Monitor renal function, I's and O's, and place on electrolyte replacement protocol. She will need potassium replacement for a potassium of 2.5. 10. We will place her on IV fluids and normal saline at 125 mL an hour. 11. Continue with broad-spectrum antibiotics of vancomycin and Zosyn. Monitor for signs of infection, which include fever and WBC. Follow up on blood cultures. We will obtain a sputum culture and will check urinalysis with culture if indicated. 12. Place on medium sliding scale insulin with Accu-Cheks for glycemic control. 13. Monitor CBC and coags. 14. Place on Protonix 40 mg IV daily for gastrointestinal prophylaxis. Keep n.p.o. for now. 15. Monitor LFTs and will check an ammonia level. I will obtain an ultrasound of the liver. 16. Gastrointestinal prophylaxis with Protonix 40 mg daily, and deep venous thrombosis prophylaxis with sequential compression devices. We will hold off on chemical anticoagulation prophylaxis due to oral mucosa bleeding noted from multiple NG tube intubation attempts. 17. Consult Palliative Care. I had an extensive meeting with Noemi from Palliative Care and family members regarding code status and I updated them on her condition. Family agreed to make the patient no CODE DNR; however, there if is no improvement in the next 24-48 hours, there is a possibility of transitioning her to comfort care. The patient is not a candidate for hypothermia protocol due to hemodynamic instability and multiple codes. She has a right femoral central line, a left radial art line and right 32-Swazi chest tube in place. CRITICAL CARE TIME: 60 minutes, excluding procedures. MD Jasbir Angel , 07:29 PM , 07:50 PM
[2018-09-11] MEDS: Norepinephrine Inj 4 MG/4 ML Ampul ONE ×2 (20:40→21:00)
[2018-09-11] MEDS ORDERED: Vancomycin Inj 1,000 MG in Sodium Chlor 0.9% Inj 250 ML IV.SIG SCH (21:00)
[2018-09-11] MEDS: Piperacil/Tazo 4.5 GM Premix 4.5 GM/100 ML BAG IV.SIG SCH (21:01)
[2018-09-11 21:13] LABS: Amphetamine Screen,Urine Neg (Neg); Barbiturate Screen,Urine Neg (Neg); Cannabinoid Screen,Urine Pos (Neg); Cocaine Screen,Urine Neg (Neg)
[2018-09-11 21:19] LABS: Opiate Screen,Urine Neg (Neg)
[2018-09-11] MEDS: Insulin NovoLIN Regular Correctional Sugar Inj SQ SCH (21:19)
[2018-09-11] MEDS: Sodium Bicarbonate 8.4% Inj 150 MEQ in Water for Inj, Sterile 850 ML IV.CONT SCH (21:19)
--- NOTE | 2018-09-11 21:28 | ECG ---
Date Performed: 09/11/2018 Time Performed: 17:05:04 PTAGE: 68 years EKG: ATRIAL FIBRILLATION WITH RAPID VENTRICULAR RESPONSE WITH ABERRANT CONDUCTION OR VENTRICULAR PREMATURE COMPLEXES RIGHT BUNDLE BRANCH BLOCK ABNORMAL ECG PREVIOUS TRACING : 09/11/2018 17.04 Compared to previous tracing, rate faster DOCTOR: Bud Corona Interpretating Date/Time 09/11/2018 21:28:37
[2018-09-11 22:00] LABS: Bacteria,Urine Rare /hpf; Bilirubin,Urine Negative (Negative); Color,Urine Yellow (Yellw/Straw); Glucose,Urine (UA) 500 or Greater mg/dL (Negative); Leukocyte Esterase,Urine Negative (Negative); Nitrite,Urine Negative (Negative); Specific Gravity,Urine 1.008 (1.002-1.035); Squamous Epithelial Cell,Urine 1 /hpf (0-5)
[2018-09-11 22:01] LABS: Clarity,Urine Clear (Clear)
[2018-09-11] MEDS ORDERED: Phenylephrine Inj 40 MG in Sodium Chlor 0.9% Inj 496 ML IV.CONT PRN (22:17)
[2018-09-11] MEDS ORDERED: Sod Chloride 0.9% Inj 1,000 ML IV.SIG SCH (22:30)
[2018-09-12] MEDS: Insulin NovoLIN Regular Correctional Sugar Inj SQ SCH ×2 (00:58→05:13)
[2018-09-12] MEDS ORDERED: Hyoscyamine Inj 0.5 MG/ML Ampul IV.PUSH PRN (02:23)
[2018-09-12] MEDS ORDERED: Morphine Inj 4 MG/ML Vial IV.PUSH PRN (02:23)
[2018-09-12] MEDS ORDERED: Hyoscyamine Inj 0.5 MG/ML Ampul IV.PUSH ONE (02:23)
[2018-09-12] MEDS ORDERED: HYDROmorphone PF Inj 1 MG/ML Ampul IV.PUSH ONE (02:23)
[2018-09-12] MEDS ORDERED: fentaNYL Citrate Inj 100 MCG/2 ML Ampul IV.PUSH ONE (02:23)
[2018-09-12] MEDS: Piperacil/Tazo 4.5 GM Premix 4.5 GM/100 ML BAG IV.SIG SCH (02:27)
[2018-09-12] MEDS ORDERED: Chlorhexidine Gluconate 2% 1 Pack (2 Cloths) TOPICAL SCH (04:00)
[2018-09-12] MEDS ORDERED: Chlorhexidine Gluconate 2% 1 Pack (2 Cloths) TOPICAL PRN (04:00)
[2018-09-12] MEDS: Sodium Bicarbonate 8.4% Inj 150 MEQ in Water for Inj, Sterile 850 ML IV.CONT SCH (05:11)
[2018-09-13] MEDS ORDERED: Pharmacy Ordered Lab Info OTHER ONE (08:45)
== END 2018-09-12 03:15 | disposition expired ==
LOC: NEPE 16:09 → NEDA 17:40 → HIMC 18:05
PROVIDERS: ADMIT Anesthesiology; ATTEND Anesthesiology